=== PATIENT | female | born 1980 | race Caucasian/White ===

== ENCOUNTER → 2017-02-01 | Outpatient (CLI) | payer OTHER ==
[~2017-02-01] MED LIST: /AUGM875TA OR; CALC500T21 PO; DIPH50CA PO; DULO20CA OR; IBUP600T26 PO; IBUP800T OR; LISI5TAB PO; MILKSUS OR; NATU400T PO; OMEP20CA3 PO; OMEP20TA7 PO; ROZE8TAB PO; SING10TA31 OR; VENTAER INH; VITA400C29 PO; VITA500C OR; ZINC220T2 OR; ZITH500T PO; garlic PO; melatonin; probiotic PO
--- NOTE | 2017-02-01 09:50 | REP ---
MAXILLOFACIAL CT WITHOUT CONTRAST: HISTORY: Chronic maxillary sinusitis. The sinuses are clear. The osteomeatal units are patent. The middle and inferior nasal turbinates are partially paradoxical. There is mild deviation of the nasal septum to the right. A spur is present arising from the right side of the nasal septum. The cribriform plate, medial johnson of the orbits and optic canals are intact. The carotid canals form a segment of the posterolateral johnson of the sphenoid sinus. The sphenoid sinus septum inserts into the right internal carotid canal wall. IMPRESSION: There is no acute or chronic sinusitis. Signed by Lauro Warren MD 02/01/2017 10:12 A
== END ==
LOC: M RAD 09:07
PROVIDERS: ATTEND Specialist
DX: J32.0 Chronic maxillary sinusitis (principal); J32.2 Chronic ethmoidal sinusitis

== ENCOUNTER → 2017-02-21 | Outpatient (CLI) | payer OTHER ==
[~2017-02-21] MED LIST changes: +E-Z-GAS II EFFERVESCENT PACKET (SODIUM BICARB./CITRIC ACID/SIMETHICONE) As Ordered ONE; +E-Z-HD 98% w/w 340GM SUSP BTL As Ordered ONE; +E-Z-PAQUE 96% w/w SUSP 176GM BTL As Ordered ONE
--- NOTE | 2017-02-22 05:52 | REP ---
ESOPHAGRAM: The procedure was performed under the direct supervision of Dr. Abreu. The images were reviewed with Dr. Abreu. A single view PA chest x-ray is submitted as a shaper set up operator film. The superior mediastinal structures are midline. The heart size is within normal limits. The lungs are clear. Liquid barium and gas producing granules were given in the erect position as well as liquid barium in the prone oblique positions in order to perform a double contrast esophagram examination. The oral and pharyngeal stages of deglutition are unremarkable. During esophageal transport, there are mild tertiary waves demonstrated. There is gastroesophageal reflux demonstrated to above the level of the peter. IMPRESSION: 1. Mild esophageal dysmotility. 2. There is gastroesophageal reflux demonstrated to above the level of the peter. 54 seconds of fluoroscopy time was utilized for this procedure. Reviewed by DAVID Mckeon 02/22/2017 05:31 PEdited and Signed by Angelo Abreu MD 02/25/2017 05:33 P
== END ==
LOC: M RAD 08:40
PROVIDERS: ATTEND Specialist
DX: R13.13 Dysphagia, pharyngeal phase (principal)

== ENCOUNTER 2017-03-05 02:14 | Inpatient (IN) | payer OTHER ==
[~2017-03-05] VITALS: Ht 167.6 cm; Wt 115.9 kg
[~2017-03-05 02:14] MED LIST changes: -E-Z-GAS II EFFERVESCENT PACKET (SODIUM BICARB./CITRIC ACID/SIMETHICONE) As Ordered ONE; -E-Z-HD 98% w/w 340GM SUSP BTL As Ordered ONE; -E-Z-PAQUE 96% w/w SUSP 176GM BTL As Ordered ONE
[2017-03-05] MEDS ORDERED: ONDANSETRON 4MG/2ML VIAL (J2405) IV PRN (02:30)
[2017-03-05 05:30] VITALS: BP 169/81
[2017-03-05] MEDS ORDERED: CLINDAMYCIN 300 MG in APPROPRIATE DILUENT 1 EA IV SCH (06:00)
[2017-03-05] MEDS ORDERED: HYDR12CA PO (06:06)
[2017-03-05] MEDS ORDERED: PANT40TA2 PO (06:06)
[2017-03-05] MEDS ORDERED: LORA10TA2 PO (06:06)
[2017-03-05] MEDS ORDERED: HUMI40KI SC (06:06)
[2017-03-05] MEDS ORDERED: TOPR25TA PO (06:06)
[2017-03-05] MEDS ORDERED: BACITAB3 PO (06:06)
[2017-03-05] MEDS ORDERED: DIPH50CA PO (06:06)
[2017-03-05] MEDS ORDERED: DOCU100C PO (06:06)
[2017-03-05] MEDS ORDERED: ZANA4TAB PO (06:06)
[2017-03-05] MEDS ORDERED: VITA10002 PO (06:06)
[2017-03-05] MEDS ORDERED: FLAG500T PO (06:06)
[2017-03-05] MEDS ORDERED: VITA50003 PO (06:06)
[2017-03-05] MEDS ORDERED: FENO145T PO (06:06)
[2017-03-05] MEDS ORDERED: CIPR500T3 PO (06:06)
[2017-03-05] MEDS ORDERED: CLIN1GEL22 EXT (06:06)
[2017-03-05] MEDS ORDERED: OMEG100011 PO (06:06)
[2017-03-05] MEDS ORDERED: CITR1SOL PO (06:06)
[2017-03-05] MEDS ORDERED: TRIA1CR TOP (06:06)
[2017-03-05] MEDS ORDERED: ACETAMINOPHEN TAB 650MG DOSE (2X325MG) PO PRN (07:00)
[2017-03-05 07:30] LABS: BASO % 0.4 % (0.0-1.0); EOS # 0.2 K/mm3 (0.0-0.50); EOS % 3.4 % (0.0-3.0); LARGE UNSTAINED CELL # 0.1 K/mm3 (0.0-0.4); LARGE UNSTAINED CELL % 2.4 % (0.0-4.0); LYMPH # 1.6 K/mm3 (1.5-4.5); LYMPH % 35.2 % (24.0-44.0); MEAN CORPUSCULAR HEMOGLOBIN 31.3 pg (27.0-33.0); MEAN CORPUSCULAR HGB CONC 34.2 g/dl (32.0-36.5); MEAN CORPUSCULAR VOLUME 91.5 fl (80.0-96.0); MONO # 0.3 K/mm3 (0.0-0.8); MONO % 6.2 % (0.0-5.0); NEUTROPHILS # 2.4 K/mm3 (1.8-7.7); NEUTROPHILS % 52.4 % (36.0-66.0); PLATELET COUNT, AUTOMATED 184 k/mm3 (150-450); RED CELL DISTRIBUTION WIDTH 13.1 % (11.5-14.5); WHITE BLOOD COUNT 4.6 K/mm3 (4.0-10.0)
[2017-03-05 07:45] LABS: ALBUMIN 3.4 GM/DL (3.2-5.2); ALKALINE PHOSPHATASE 37 U/L (45-117); ALT/SGPT 58 U/L (12-78); ANION GAP 8 MEQ/L (8-16); AST/SGOT 33 U/L (15-37); BILIRUBIN,TOTAL 0.6 MG/DL (0.2-1.0); BLOOD UREA NITROGEN 8 MG/DL (7-18); CALCIUM LEVEL 8.5 MG/DL (8.5-10.1); CARBON DIOXIDE LEVEL 27 MEQ/L (21-32); CHLORIDE LEVEL 109 MEQ/L (98-107); CREATININE FOR GFR 0.84 MG/DL (0.55-1.02); GLOMERULAR FILTRATION RATE > 60.0 (>60); GLUCOSE, FASTING 109 MG/DL (70-105); POTASSIUM SERUM 3.5 MEQ/L (3.5-5.1); SODIUM LEVEL 144 MEQ/L (136-145); TOTAL PROTEIN 6.8 GM/DL (6.4-8.2)
--- NOTE | 2017-03-05 07:49 | HPE ---
DATE OF ADMISSION: 03/05/2017 PRIMARY CARE PHYSICIAN: Sabra Calderon CHIEF COMPLAINT: Erythema and pain on the left lower abdomen. HISTORY OF PRESENT ILLNESS: Ms. Medina is a 36-year-old female with multiple past medical history who was transferred from [facility] for further evaluation and treatment. The patient expressed that on Saturday she started noticing pain in her right lower quadrant abdomen and a small erythema area, 7/10, stationary and sharp pain that increases with palpitation. On , the patient was seen by her primary care physician who prescribed her clindamycin due to the possibility of a flare-up of hidradenitis suppurativa and prevention of cellulitis. The patient expressed that the pain increased and on Saturday night she went to [facility] where they performed a CT and they diagnosed the patient with diverticulitis and started the patient on Flagyl and Cipro and make patient nothing by mouth. However, she expressed that they stopped the clindamycin. The patient expressed that she never had a history of Methicillin-resistant Staphylococcus aureus (MRSA). She did not have diarrhea or hematochezia. The patient also denies fevers, chills or night sweats. The patient also denies changes in her bowel habits. She also denies nausea or vomiting. She expressed that she has been having episodes of hidradenitis suppurativa flareup since she was very young. Patient reported tolerating oral liquids since yesterday. ALLERGIES: 1. KETOROLAC. 2. SUMATRIPTAN. 3. Tape. HOME MEDICATIONS: Ciprofloxacin 550 mg by mouth twice a day Clindamycin phosphate one dose extended twice a day when necessary Vitamin B12 1000mcg by mouth daily at bedtime Docusate sodium 100 mg by mouth twice a day Vitamin D 50,000 units by mouth only on Fenofibrate 145 mg by mouth daily at bedtime Hydrochlorothiazide 12.5 mg by mouth daily bacid 3 tablets by mouth daily at bedtime Loratadine 10 mg by mouth daily at bedtime Citrate of magnesia 300 mL by mouth daily when necessary constipation Toprol-XL 25 mg by mouth daily at bedtime Flagyl 500 mg by mouth for 10 days Medical 3 1000 mg 1 By mouth daily at bedtime Pantoprazole sodium 40 mg by mouth daily at bedtime Zanaflex 2 tab by mouth daily at bedtime Triamcinolone Acet one dose topical twice a day when necessary sores PAST MEDICAL HISTORY: 1. Hidradenitis suppurativa. 2. Diverticulitis. 3. Cellulitis. SOCIAL HISTORY: The patient has three children who are healthy and the patient lives with her stepfather and mother. The patient expressed that she drinks alcohol occasionally. The patient denies illicit drug use. The patient denies tobacco use. The patient has not traveled outside of the [place]. The patient has one cat. FAMILY HISTORY: The patient has one half brother and two half sisters who are healthy. The patient's mother has hyperglycemia. The patient's father has many different diseases except cancer. REVIEW OF SYSTEMS: GENERAL: Patient denies fever, chills, night sweats, weight loss, weight gain. HEENT: Patient denies acute vision or hearing changes. Patient denies headache , lightheadedness or dizziness, problems with chewing foods or sinusitis. NECK: Patient denies lumps, bumps or decreased range of motion of her neck. HEART: Patient denies palpitation, racing or skipping heartbeat, or chest pain. LUNGS: Patient denies shortness of breath. ABDOMEN: Patient denies nausea, vomiting diarrhea; however, patient has history of chronic constipation. Patient also has pain, erythema area which she expressed that pain increases with palpation. The patient expressed the pain is about 5/10, sharp pain. NEUROLOGIC: Patient denies history of transient ischemic attack (TIA), CVA, or seizure-type activities. PHYSICAL EXAMINATION: VITAL SIGNS: Temperature 100.5, pulse 76, respiratory rate 20, pulse oximetry 97% on room air. GENERAL APPEARANCE: Patient was lying in bed, acute distress due to pain. Patient was awake, alert and oriented to time, place and person. HEENT: Normocephalic, atraumatic. Pupils are equal, reactive to light. Oral mucosa is moist. NECK: Soft, supple. No lymphadenopathy. No thyromegaly. HEART: Regular rate and rhythm. Normal S1, S2. LUNGS: Clear breath bilaterally, good air movement. ABDOMEN: Soft. There is erythema area, worm with two small lesions however, no bleeding, discharge or pus was noticed in that area. Pain increased with palpation of the area however no guarding. The patient also has a small lesion in the left mid axillary area, swelling and erythema and tenderness to palpation. The patient has positive bowel sounds in all quadrants. EXTREMITIES: Patient has mild pitting edema in both lower extremities. +2 pulses in both lower extremities. The patient has normal range of motion and strength (5/5) in both upper and lower extremities. NEUROLOGICAL: Cranial nerves II through XII intact. No focal deficiencies. LABORATORY DATA: Laboratory data is from [facility] which was collected on 03/04/2017, which indicated sodium 143, BUN 8, potassium 3.3, chloride 109, CO2 30, anion gap 7, glucose 95, creatinine 0.8, glomerular filtration rate (GFR) more than 60, ALT 52, AST 28, ALP 42, calcium 9.8, total bilirubin 0.8, albumin 4.7, total protein 7.7. Lactic acid 0.9. White blood cells 6.3, red blood cells 3.73, hemoglobin 11.4, hematocrit 33.2, MCV 89, MCH 30.6, MCHC 34.3, RDW 12, platelets 218, MCV 10.7, neutrophil percentage 51.0. Urinalysis - urine color and urine appearance clear, urine pH 7, urine specific gravity 1.016, leukocytosis negative, nitrite negative, protein negative, glucose negative, ketones negative, urobilinogen 0.2, bilirubin negative, blood negative. IMAGING TECHNIQUES: CT of the abdomen and pelvis without contrast, which was done at [facility] on 03/02/2017, which indicated wall thickening and inflammatory changes involving the sigmoid colon consistent with acute diverticulitis. No abscess or perforation. Chest x-ray two-view, which was done at [facility] on 03/02/2017, which did not indicate any acute pathology. ASSESSMENT/PLAN: 1. Cellulitis. this is secondary to Hidradenitis suppurativa possibly stage 2. At this time, we will start the patient on Ceftaroline. Patient has fever of 100.5, however no leukocytosis. I will continue patient on triamcinolone acet 0.1% cr. For pain management we'll continue patient on Percocet 1 tablet by mouth every 6 hours when necessary pain. 2. Normocytic anemia. This could be possibly secondary to GI bleed secondary to diverticulitis vs IV fluid. I have ordered occult blood tests and iron studies. The results are pending at this time. The patient did not have any history of colonoscopy or EGD. Patient is not on IV fluid since she can tolerate PO intake. We'll continue monitoring H&H. 3. Hypertension. Patient's blood pressure is a stable at this time. I will continue patient on home medications hydrochlorothiazide and Toprol. 4. Gastroesophageal reflux disease (GERD). We'll continue patient on pantoprazole. 5. Insomnia. Patient was on Benadryl 50 mg by mouth daily at bedtime when necessary however at this time patient is a stable. 6. Seasonal allergies. We'll continue patient on loratadine 10 mg daily at bedtime. 7. Deep vein thrombosis (DVT) prophylaxis. We will continue the patient on thromboembolic deterrent stockings (TEDS) and sequentials. 8. Hypercholesterolemia: Patient is on fenofibrate 145 mg by mouth daily at bedtime. 9. Chronic constipation: Patient is on magnesium citrate 300 mL by mouth daily when necessary for constipation. My preceptor for this patient encounter was Dr. Nohemy Valles. The preceptor was physically present in the building during the encounter and was fully available. As needed, all aspects of the patient interview, examination, medical decision making process, and medical care plan development were reviewed and approved by the preceptor. The preceptor is aware and concurs with the plan as stated in the body of this note and will attest to such by his/her cosignature. ADELINE
[2017-03-05 08:00] VITALS: BP 161/85
[2017-03-05] MEDS ORDERED: CEFTAROLINE FOSAMIL 400 MG in D5W 50 ML IV SCH (08:00)
[2017-03-05] MEDS ORDERED: diphenhydrAMINE 50 MG CAP PO PRN (08:15)
[2017-03-05] MEDS ORDERED: TRIAMCINOLONE ACET 0.1% CREAM 15 GM TOP PRN (08:15)
[2017-03-05] MEDS ORDERED: MAGNESIUM CITRATE 300 ML BTL PO PRN (08:15)
[2017-03-05] MEDS: CEFTAROLINE FOSAMIL 400 MG in D5W MINI-BAG PLUS 50 ML IV SCH ×2 (08:36→21:59)
[2017-03-05] MEDS ORDERED: ENOXAPARIN 40 MG/0.4 ML SYRINGE (J1650) SC SCH (09:00)
[2017-03-05] MEDS ORDERED: LISINOPRIL 5 MG TAB PO SCH (09:00)
[2017-03-05] MEDS ORDERED: PERCOCET 5MG/325MG TAB PO PRN (09:45)
[2017-03-05] MEDS: hydroCHLOROthiazide 12.5 MG CAPSULE PO SCH (10:05)
[2017-03-05] MEDS: DOCUSATE SODIUM 100 MG CAP PO SCH ×2 (10:05→22:14)
[2017-03-05] MEDS: PERCOCET 5MG/325MG TAB PO PRN ×3 (10:06→22:18)
[2017-03-05 10:13] LABS: FOLATE 13.8 NG/ML (>5.4)
[2017-03-05] MEDS ORDERED: MORPHINE 2 MG/ML 1ML SYRINGE IV ONE (13:00)
[2017-03-05] MEDS: ONDANSETRON 4MG/2ML VIAL (J2405) IV PRN ×2 (13:09→18:33)
--- NOTE | 2017-03-05 14:08 | IPNPDOC ---
Date Seen The patient was seen on 03/05/17. Progress Note SUBJECTIVE: Ms. Medina is a 36-year-old female evaluated bedside this morning. She states that she still in a moderate amount of pain on her lower right abdomen as well as experiencing some pain in her left axilla. She reports that she has recurrent cellulitic infections and has a history of hidradenitis suppurativa. She was a direct admission from [facility]. She follows with a plater production in [place]. OBJECTIVE PHYSICAL EXAMINATION: VITAL SIGNS: Please see below. GENERAL: Obese female dilated bedside this morning, well-nourished, well-developed, no apparent distress HEENT: Atraumatic, normocephalic, PERRL, EOMI, oral mucosa appears pink and moist, nasal septum appears midline CARDIOVASCULAR: Regular rate and rhythm, normal S1 and S2, no murmur, rub, click appreciated RESPIRATORY: Clear to auscultation bilaterally, adequate inspiratory and expiratory airway excursion, no wheeze, rhonchi, crackles ABDOMINAL: Obese with diffuse stretch ansari noted; erythematous, raised, non- weeping circular, moderately sized lesions some with a more clear center noted along the lower left abdominal fold EXTREMITIES: Mild, trace peripheral edema noted in the lower extremities bilaterally; peripheral pulses noted in the upper and lower extremities bilaterally, equal, symmetrical, +2/4; very mildly erythematous and somewhat raised ill-defined lesion proximal to the left axilla that is exquisitely tender to light palpation NEUROLOGICAL: Cranial nerves II through XII are grossly intact PSYCHOLOGICAL: Uncomfortable LABORATORY DATA: Please see below. MICROBIOLOGY: Please see below. DVT prophylaxis ordered?: TEDs and sequentials with knee-high compression stockings ASSESSMENT AND PLAN: Ms. Medina is a 36-year-old female with a history of hydradenitis suppurativa, cellulitis, and diverticulitis who presents with recurrent cutaneous lesions was consistent with hidradenitis suppurativa. PROBLEMS: 1. Hidradenitis suppurativa: Appears to be Corona stage II. Currently being treated with by mouth ceftaroline, Percocet, and topical triamcinolone. Could also consider adding topical clindamycin as well as a short course of prednisone by mouth. Obtaining MRSA screen. 2. Hypertension: Continue with metoprolol and hydrochlorothiazide. 3. Anemia, mild: Stool for occult blood being obtained. Iron studies within optimal range. 4. Chronic constipation. Continue patient on bowel regimen of acid, Colace, magnesium citrate. 5. Dyslipidemia: Continue fenofibrate. 6. Allergies: Continue with Claritin. 7. Insomnia: Continue with Benadryl. 8. Gastric esophageal reflux disease: Continue with Protonix. Continue with Zofran for nausea. DISPOSITION: Remains admitted to the pediatrics unit. Continue current management for hydradenitis suppuravita. Control pain. Clinical evaluation at this time appears stable. Anticipated discharge in the next 2448 hrs. VS, I&O, 24H, Fishbone Vital Signs/I&O Vital Signs Date Time Temp Pulse Resp B/P (MAP) Pulse Ox O2 Delivery O2 Flow Rate FiO2 03/05/17 13:00 18 03/05/17 08:00 98.1 75 161/85 (110) 97 Room Air I&O- Last 24 Hours up to 6 AM 03/05/17 06:00 Intake Total 240 ml Output Total 0 ml Balance 240 ml Laboratory Data 24H LABS Laboratory Tests 2 03/05/17 07:04: White Blood Count 4.6, Red Blood Count 3.46L, Hemoglobin 10.8L, Hematocrit 31.6L , Mean Corpuscular Volume 91.5, Mean Corpuscular Hemoglobin 31.3, Mean Corpuscular Hemoglobin Concent 34.2, Red Cell Distribution Width 13.1, Platelet Count 184, Neutrophils (%) (Auto) 52.4, Lymphocytes (%) (Auto) 35.2, Monocytes ( %) (Auto) 6.2H, Eosinophils (%) (Auto) 3.4H, Basophils (%) (Auto) 0.4, Neutrophils # (Auto) 2.4, Lymphocytes # (Auto) 1.6, Monocytes # (Auto) 0.3, Eosinophils # (Auto) 0.2, Basophils # (Auto) 0.0, Large Unclassified Cells % 2.4 , Large Unclassified Cells # 0.1, Anion Gap 8, Glomerular Filtration Rate > 60.0 , Blood Urea Nitrogen 8, Creatinine 0.84, Sodium Level 144, Potassium Level 3.5 , Chloride Level 109H, Carbon Dioxide Level 27, Calcium Level 8.5, Aspartate Amino Transf (AST/SGOT) 33, Alanine Aminotransferase (ALT/SGPT) 58, Alkaline Phosphatase 37L, Total Bilirubin 0.6, Total Protein 6.8, Albumin 3.4, Albumin/ Globulin Ratio 1.00 03/05/17 08:18: Lactic Acid Level 1.2 03/05/17 09:10: Iron Level 66, Total Iron Binding Capacity 275, Transferrin % Saturation 24.0, Ferritin 460H, Vitamin B12 Level 888, Folate 13.8 CBC/BMP Laboratory Tests 03/05/17 07:04 Red Blood Count 3.46 L, Mean Corpuscular Volume 91.5, Mean Corpuscular Hemoglobin 31.3, Mean Corpuscular Hemoglobin Concent 34.2, Red Cell Distribution Width 13.1, Neutrophils (%) (Auto) 52.4, Lymphocytes (%) (Auto) 35.2, Monocytes (%) (Auto) 6.2 H, Eosinophils (%) (Auto) 3.4 H, Basophils (%) ( Auto) 0.4, Neutrophils # (Auto) 2.4, Lymphocytes # (Auto) 1.6, Monocytes # (Auto ) 0.3, Eosinophils # (Auto) 0.2, Basophils # (Auto) 0.0, Calcium Level 8.5, Aspartate Amino Transf (AST/SGOT) 33, Alanine Aminotransferase (ALT/SGPT) 58, Alkaline Phosphatase 37 L, Total Bilirubin 0.6, Total Protein 6.8, Albumin 3.4 DANIEL KNAPP March 05, 2017 14:08
[2017-03-05 16:00] VITALS: BP 140/83
[2017-03-05 20:00] VITALS: BP 164/75
[2017-03-05] MEDS: MORPHINE 2 MG/ML 1ML SYRINGE IV PRN (20:00)
[2017-03-05] MEDS ORDERED: DULoxetine 20 MG CAP (CYMBALTA) PO SCH (21:00)
[2017-03-05] MEDS ORDERED: RAMELTEON 8 MG TAB (ROZEREM) PO SCH (21:00)
[2017-03-05] MEDS ORDERED: OMEPRAZOLE 20 MG CAP PO SCH (21:00)
[2017-03-05] MEDS: LACTOBACILLUS ACIDOPHILUS CAP (BACID) PO SCH ×2 (22:13→22:22)
[2017-03-05] MEDS: diphenhydrAMINE 50 MG CAP PO SCH ×2 (22:13→22:22)
[2017-03-05] MEDS: LORATADINE 10 MG TAB PO SCH (22:14)
[2017-03-05] MEDS: PANTOPRAZOLE 40MG TAB (PROTONIX) PO SCH (22:14)
[2017-03-05] MEDS: OMEGA-3 1050MG CAPSULE PO SCH (22:14)
[2017-03-05] MEDS: METOPROLOL SUCC *XL* 25MG TAB (TopROL *XL*) PO SCH (22:15)
[2017-03-05] MEDS: tiZANidine 4 MG TAB PO SCH (22:16)
[2017-03-05] MEDS: FENOFIBRATE 145 MG TAB (TRICOR) PO SCH (22:17)
[2017-03-05] MEDS: CYANOCOBALAMIN 500 MCG TAB PO SCH (22:17)
[2017-03-06] VITALS: BP 130/75
[2017-03-06] MEDS: ONDANSETRON 4MG/2ML VIAL (J2405) IV PRN ×3 (00:13→20:38)
[2017-03-06] MEDS: MORPHINE 2 MG/ML 1ML SYRINGE IV PRN ×5 (00:13→22:18)
[2017-03-06] MEDS ORDERED: ONDANSETRON 4MG/2ML VIAL (J2405) IV PRN (02:30)
[2017-03-06 07:02] LABS: BASO % 0.6 % (0.0-1.0); EOS # 0.2 K/mm3 (0.0-0.50); EOS % 3.1 % (0.0-3.0); LARGE UNSTAINED CELL # 0.1 K/mm3 (0.0-0.4); LARGE UNSTAINED CELL % 1.5 % (0.0-4.0); LYMPH # 1.6 K/mm3 (1.5-4.5); LYMPH % 31.9 % (24.0-44.0); MEAN CORPUSCULAR HEMOGLOBIN 31.6 pg (27.0-33.0); MEAN CORPUSCULAR HGB CONC 35.4 g/dl (32.0-36.5); MEAN CORPUSCULAR VOLUME 89.4 fl (80.0-96.0); MONO # 0.3 K/mm3 (0.0-0.8); MONO % 5.7 % (0.0-5.0); NEUTROPHILS # 2.8 K/mm3 (1.8-7.7); NEUTROPHILS % 57.2 % (36.0-66.0); PLATELET COUNT, AUTOMATED 193 k/mm3 (150-450); RED CELL DISTRIBUTION WIDTH 13.3 % (11.5-14.5); WHITE BLOOD COUNT 4.9 K/mm3 (4.0-10.0)
[2017-03-06 07:21] LABS: ANION GAP 7 MEQ/L (8-16); BLOOD UREA NITROGEN 7 MG/DL (7-18); CARBON DIOXIDE LEVEL 28 MEQ/L (21-32); CHLORIDE LEVEL 107 MEQ/L (98-107); CREATININE FOR GFR 0.93 MG/DL (0.55-1.02); GLOMERULAR FILTRATION RATE > 60.0 (>60); GLUCOSE, FASTING 122 MG/DL (70-105); POTASSIUM SERUM 3.6 MEQ/L (3.5-5.1); SODIUM LEVEL 142 MEQ/L (136-145)
[2017-03-06] MEDS ORDERED: ACETAMINOPHEN 325 MG TAB PO PRN (07:45)
[2017-03-06 08:00] VITALS: BP 129/69
[2017-03-06] MEDS ORDERED: PERCOCET 5MG/325MG TAB PO PRN (08:00)
[2017-03-06] MEDS: hydroCHLOROthiazide 12.5 MG CAPSULE PO SCH (09:53)
[2017-03-06] MEDS: DOCUSATE SODIUM 100 MG CAP PO SCH ×2 (09:53→20:39)
[2017-03-06] MEDS: CEFTAROLINE FOSAMIL 400 MG in D5W MINI-BAG PLUS 50 ML IV SCH ×2 (09:53→20:40)
[2017-03-06] MEDS: PERCOCET 5MG/325MG TAB PO PRN ×3 (09:54→20:37)
--- NOTE | 2017-03-06 10:26 | IPNPDOC ---
Date Seen The patient was seen on 03/06/17. Progress Note SUBJECTIVE: Ms. Medina is a 36-year-old female evaluated bedside this morning. Had long discussion with patient about the different options for pain control. Patient reports that the interval of morphine with Percocet was working well. Have reinstituted at protocol of morphine every 4 hours and Percocet every 4 hours. Patient did have a fever overnight. No intervention required. Patient sees Rhiannon Abbott in [place] for her hidradenitis suppuravita . Patient reports that she is still in pain. Patient reports that one of the abscesses is draining and then she will get in the shower which will help express abscess. Also reports that she would like to have something to eat now that her nausea has been controlled. OBJECTIVE PHYSICAL EXAMINATION: VITAL SIGNS: Please see below. GENERAL: Obese female resting comfortably upon evaluation this morning , well-nourished, well-developed, no apparent distress HEENT: Atraumatic, normocephalic, PERRL, EOMI, oral mucosa appears pink and moist, nasal septum appears midline, nares are patent CARDIOVASCULAR: Regular rate and rhythm, normal S1 and S2, no murmur, rub, click appreciated RESPIRATORY: Clear to auscultation bilaterally, adequate inspiratory and expiratory airway excursion, no wheeze, rhonchi, crackles appreciated ABDOMINAL: Multiple erythematous, raised lesions noted along the right lower abdominal fold with one expressing purulent discharge, exquisitely tender to mild palpation, bowel sounds appreciated, abdomen is otherwise round, soft, nontender, nondistended EXTREMITIES: Mildly erythematous and raised lesion noted proximal to the left axilla, not well demarcated NEUROLOGICAL: Cranial nerves II through XII appear grossly intact PSYCHOLOGICAL: Mood and affect appear appropriate LABORATORY DATA: Please see below. MICROBIOLOGY: Please see below. DVT prophylaxis ordered?: TEDs and sequentials with knee-high compression stockings ASSESSMENT AND PLAN: Ms. Medina is a 36-year-old female with a history of hydradenitis suppurativa, cellulitis, and diverticulitis who presents with recurrent cutaneous lesions consistent with hidradenitis suppurativa. PROBLEMS: 1. Hidradenitis suppurativa: Appears to be Corona stage II-III. Abscess in the right lower abdominal fold is beginning to drain. Currently being treated with by mouth ceftaroline, Percocet, morphine, and topical triamcinolone. MRSA screen is pending. CRP and ESR pending. 2. Fever: Patient on Percocet and at maximum dose of Tylenol per 24 hours. Continue to monitor. Could consider packing with ice if fever returns or persists. Patient allergic to NSAIDs some management with aspirin his discouraged 3. Hypertension: Continue with metoprolol and hydrochlorothiazide. 4. Anemia, mild: Patient reports history of anemia. Stool for occult blood being obtained. Iron studies within optimal range. 5. Chronic constipation. Continue patient on bowel regimen of acid, Colace, magnesium citrate. 6. Dyslipidemia: Continue fenofibrate. 7. Allergies: Continue with Claritin. 8. Insomnia: Continue with Benadryl. 9. Gastric esophageal reflux disease: Continue with Protonix. Continue with Zofran for nausea. DISPOSITION: Remains admitted to the pediatrics unit. Continue current management for hydradenitis suppuravita. Control pain. Clinical evaluation at this time appears stable. Anticipated discharge in the next 48-72 hrs. VS, I&O, 24H, [facility] Vital Signs/I&O Vital Signs Date Time Temp Pulse Resp B/P (MAP) Pulse Ox O2 Delivery O2 Flow Rate FiO2 03/06/17 09:54 18 03/06/17 08:00 97.2 68 129/69 (89) 98 Room Air I&O- Last 24 Hours up to 6 AM 03/06/17 06:00 Intake Total 890 ml Balance 890 ml Laboratory Data 24H LABS Laboratory Tests 2 03/06/17 06:32: White Blood Count 4.9, Red Blood Count 3.53L, Hemoglobin 11.2L, Hematocrit 31.6L , Mean Corpuscular Volume 89.4, Mean Corpuscular Hemoglobin 31.6, Mean Corpuscular Hemoglobin Concent 35.4, Red Cell Distribution Width 13.3, Platelet Count 193, Neutrophils (%) (Auto) 57.2, Lymphocytes (%) (Auto) 31.9, Monocytes ( %) (Auto) 5.7H, Eosinophils (%) (Auto) 3.1H, Basophils (%) (Auto) 0.6, Neutrophils # (Auto) 2.8, Lymphocytes # (Auto) 1.6, Monocytes # (Auto) 0.3, Eosinophils # (Auto) 0.2, Basophils # (Auto) 0.0, Large Unclassified Cells % 1.5 , Large Unclassified Cells # 0.1, Anion Gap 7L, Glomerular Filtration Rate > 60.0, Blood Urea Nitrogen 7, Creatinine 0.93, Sodium Level 142, Potassium Level 3.6, Chloride Level 107, Carbon Dioxide Level 28, Calcium Level 9.0 CBC/BMP Laboratory Tests 03/06/17 06:32 Red Blood Count 3.53 L, Mean Corpuscular Volume 89.4, Mean Corpuscular Hemoglobin 31.6, Mean Corpuscular Hemoglobin Concent 35.4, Red Cell Distribution Width 13.3, Neutrophils (%) (Auto) 57.2, Lymphocytes (%) (Auto) 31.9, Monocytes (%) (Auto) 5.7 H, Eosinophils (%) (Auto) 3.1 H, Basophils (%) ( Auto) 0.6, Neutrophils # (Auto) 2.8, Lymphocytes # (Auto) 1.6, Monocytes # (Auto ) 0.3, Eosinophils # (Auto) 0.2, Basophils # (Auto) 0.0, Calcium Level 9.0 Microbiology Microbiology 03/05/17 MRSA Screen, Received Pending DANIEL KNAPP March 06, 2017 10:26
[2017-03-06 16:00] VITALS: BP 92/45
[2017-03-06 17:00] VITALS: BP 131/60
[2017-03-06 17:45] LABS: ERYTHROCYTE SEDIMENTATION RATE 19 mm/hr (0-20)
[2017-03-06 20:00] VITALS: BP 141/77
[2017-03-06] MEDS: OMEGA-3 1050MG CAPSULE PO SCH (20:38)
[2017-03-06] MEDS: LACTOBACILLUS ACIDOPHILUS CAP (BACID) PO SCH (20:38)
[2017-03-06] MEDS: METOPROLOL SUCC *XL* 25MG TAB (TopROL *XL*) PO SCH (20:38)
[2017-03-06] MEDS: FENOFIBRATE 145 MG TAB (TRICOR) PO SCH (20:39)
[2017-03-06] MEDS: PANTOPRAZOLE 40MG TAB (PROTONIX) PO SCH (20:39)
[2017-03-06] MEDS: CYANOCOBALAMIN 500 MCG TAB PO SCH (20:39)
[2017-03-06] MEDS: tiZANidine 4 MG TAB PO SCH (20:39)
[2017-03-06] MEDS: LORATADINE 10 MG TAB PO SCH (20:39)
[2017-03-06] MEDS: diphenhydrAMINE 50 MG CAP PO SCH (20:58)
[2017-03-07] VITALS: BP 116/67
[2017-03-07] MEDS: PERCOCET 5MG/325MG TAB PO PRN ×6 (00:31→23:36)
[2017-03-07] MEDS: MORPHINE 2 MG/ML 1ML SYRINGE IV PRN ×5 (02:53→21:48)
[2017-03-07] MEDS: ONDANSETRON 4MG/2ML VIAL (J2405) IV PRN ×3 (05:28→21:47)
[2017-03-07 07:21] LABS: BASO % 0.7 % (0.0-1.0); EOS # 0.2 K/mm3 (0.0-0.50); EOS % 2.9 % (0.0-3.0); LARGE UNSTAINED CELL # 0.1 K/mm3 (0.0-0.4); LARGE UNSTAINED CELL % 1.9 % (0.0-4.0); LYMPH # 2.3 K/mm3 (1.5-4.5); LYMPH % 40.9 % (24.0-44.0); MEAN CORPUSCULAR HEMOGLOBIN 31.1 pg (27.0-33.0); MEAN CORPUSCULAR HGB CONC 34.5 g/dl (32.0-36.5); MEAN CORPUSCULAR VOLUME 90.1 fl (80.0-96.0); MONO # 0.3 K/mm3 (0.0-0.8); MONO % 5.7 % (0.0-5.0); NEUTROPHILS # 2.6 K/mm3 (1.8-7.7); NEUTROPHILS % 47.9 % (36.0-66.0); PLATELET COUNT, AUTOMATED 210 k/mm3 (150-450); RED CELL DISTRIBUTION WIDTH 13.3 % (11.5-14.5); WHITE BLOOD COUNT 5.4 K/mm3 (4.0-10.0)
[2017-03-07 08:00] VITALS: BP 115/78
[2017-03-07 08:01] LABS: ANION GAP 6 MEQ/L (8-16); BLOOD UREA NITROGEN 9 MG/DL (7-18); CALCIUM LEVEL 8.9 MG/DL (8.5-10.1); CARBON DIOXIDE LEVEL 29 MEQ/L (21-32); CHLORIDE LEVEL 105 MEQ/L (98-107); CREATININE FOR GFR 0.91 MG/DL (0.55-1.02); GLOMERULAR FILTRATION RATE > 60.0 (>60); GLUCOSE, FASTING 100 MG/DL (70-105); POTASSIUM SERUM 3.4 MEQ/L (3.5-5.1); SODIUM LEVEL 140 MEQ/L (136-145)
[2017-03-07] MEDS: DOCUSATE SODIUM 100 MG CAP PO SCH ×2 (08:51→21:48)
[2017-03-07] MEDS: hydroCHLOROthiazide 12.5 MG CAPSULE PO SCH (08:51)
[2017-03-07] MEDS: CEFTAROLINE FOSAMIL 400 MG in D5W MINI-BAG PLUS 50 ML IV SCH ×2 (08:51→21:47)
[2017-03-07] MEDS ORDERED: VITAMIN D 50,000 UNITS CAPSULE (ERGOCALCIFEROL 1.25MG) PO SCH (09:00)
[2017-03-07] MEDS: POTASSIUM CHLORIDE 10 MEQ SR TABLET PO SCH ×2 (10:06→12:57)
--- NOTE | 2017-03-07 11:20 | IPNPDOC ---
Date Seen The patient was seen on 03/07/17. Progress Note SUBJECTIVE: Ms. Medina is a 36-year-old female who is examined at bedside this morning. She states that her abdominal abscess is starting to drain more. The pain control regimen that we have her on is working sufficiently. She reports that she still has not had a bowel movement since being here. Have ordered magnesium citrate. Patient reports that she has hemorrhoids after taking magnesium citrate so Anusol 25 mg twice a day has been added. Have discussed adverse effects of Anusol with patient. She is aware and understands. Patient's potassium was mildly decreased at 3.4. Have provided supplementation. And waiting a call from patient's metal patternmaker in [place]. Patient also reports calor and rubor along the lower portion of her abdomen extending out from the abscess on her right lower quadrant abdominal wall. Also reports a new lesion in her left axilla. States that she had no concerns with her diet. OBJECTIVE PHYSICAL EXAMINATION: VITAL SIGNS: Please see below. GENERAL: Obese female resting comfortably in hospital bed upon evaluation this morning, well-nourished, well-developed, in no apparent distress HEENT: Atraumatic, normocephalic, PERRL, EOMI, oral mucosa appears pink and moist, nasal septum appears midline, nares are patent CARDIOVASCULAR: Regular rate and rhythm, normal S1 and S2, no murmur, rub, click appreciated RESPIRATORY: Clear to auscultation bilaterally, adequate inspiratory and extremity airway excursion, no wheeze, rhonchi, crackles appreciated ABDOMINAL: Draining abscess with surrounding erythema noted on the right lower quadrant abdominal fold associated pain on palpation, drainage is serosanguineous, associated mild rubor and calor extending across the abdomen with no associated pain EXTREMITIES: Peripheral pulses in the upper and lower extremities appreciated bilaterally, equal, symmetrical, +2/4, trace edema noted in the bilateral lower extremities, two somewhat circular mildly erythematous lesions noted in the proximal left axilla without drainage NEUROLOGICAL: Cranial nerves II through XII grossly intact PSYCHOLOGICAL: Mood and affect appear appropriate LABORATORY DATA: Please see below. MICROBIOLOGY: Please see below. DVT prophylaxis ordered?: TEDs and sequentials with knee-high compression stockings ASSESSMENT AND PLAN: Ms. Medina is a 36-year-old female with a history of hydradenitis suppurativa, cellulitis, and diverticulitis who presents with recurrent cutaneous lesions consistent with hidradenitis suppurativa. PROBLEMS: 1. Hidradenitis suppurativa with associated cellulitis: Appears to be Corona stage II-III in the right lower quadrant abdominal fold. Abscess is draining serosanguineous fluid. Continue with Ceftaroline and topical triamcinolone. Continue with Percocet and morphine for pain. MRSA screen is pending. CRP was 0.87. Continue to monitor. 2. Hypokalemia: Supplemented with 2 doses of 40 mEq potassium chloride. We'll continue to monitor. 3. Hypertension: Continue with metoprolol and hydrochlorothiazide. 4. Anemia, mild: Patient reports history of anemia. Stool for occult blood being obtained. Iron studies within optimal range. 5. Chronic constipation. Continue patient on bowel regimen of acid, Colace, magnesium citrate. 6. Dyslipidemia: Continue fenofibrate. 7. Allergies: Continue with Claritin. 8. Insomnia: Continue with Benadryl. 9. Gastric esophageal reflux disease: Continue with Protonix. Continue with Zofran for nausea. DISPOSITION: Remains admitted to the pediatrics unit. Continue current management for hydradenitis suppuravita with associated cellulitis. Pain controlled. Clinical evaluation at this time appears stable. Awaiting call from patient's metal patternmaker in [place]. Anticipated discharge in the next 48-72 hrs. VS, I&O, 24H, Pending Sale To [facility] Vital Signs/I&O Vital Signs Date Time Temp Pulse Resp B/P (MAP) Pulse Ox O2 Delivery O2 Flow Rate FiO2 03/07/17 10:45 16 03/07/17 08:00 98.3 68 115/78 (90) 96 Room Air 03/07/17 07:53 18.0 I&O- Last 24 Hours up to 6 AM 03/07/17 06:00 Intake Total 1380 ml Output Total 0 ml Balance 1380 ml Laboratory Data 24H LABS Laboratory Tests 2 03/07/17 06:50: White Blood Count 5.4, Red Blood Count 3.81L, Hemoglobin 11.8L, Hematocrit 34.3L , Mean Corpuscular Volume 90.1, Mean Corpuscular Hemoglobin 31.1, Mean Corpuscular Hemoglobin Concent 34.5, Red Cell Distribution Width 13.3, Platelet Count 210, Neutrophils (%) (Auto) 47.9, Lymphocytes (%) (Auto) 40.9, Monocytes ( %) (Auto) 5.7H, Eosinophils (%) (Auto) 2.9, Basophils (%) (Auto) 0.7, Neutrophils # (Auto) 2.6, Lymphocytes # (Auto) 2.3, Monocytes # (Auto) 0.3, Eosinophils # (Auto) 0.2, Basophils # (Auto) 0.0, Large Unclassified Cells % 1.9 , Large Unclassified Cells # 0.1, Anion Gap 6L, Glomerular Filtration Rate > 60.0, Blood Urea Nitrogen 9, Creatinine 0.91, Sodium Level 140, Potassium Level 3.4L, Chloride Level 105, Carbon Dioxide Level 29, Calcium Level 8.9, C- Reactive Protein, Quantitative 0.87H CBC/BMP Laboratory Tests 03/07/17 06:50 Red Blood Count 3.81 L, Mean Corpuscular Volume 90.1, Mean Corpuscular Hemoglobin 31.1, Mean Corpuscular Hemoglobin Concent 34.5, Red Cell Distribution Width 13.3, Neutrophils (%) (Auto) 47.9, Lymphocytes (%) (Auto) 40.9, Monocytes (%) (Auto) 5.7 H, Eosinophils (%) (Auto) 2.9, Basophils (%) ( Auto) 0.7, Neutrophils # (Auto) 2.6, Lymphocytes # (Auto) 2.3, Monocytes # (Auto ) 0.3, Eosinophils # (Auto) 0.2, Basophils # (Auto) 0.0, Calcium Level 8.9 DANIEL KNAPP-Luke March 07, 2017 11:20
[2017-03-07] MEDS: ANUSOL HC 25MG SUPP PR SCH ×2 (11:45→18:49)
[2017-03-07] MEDS ORDERED: GASTROGRAFIN SOLUTION 30ML (Q9963) PO ONE (15:45)
[2017-03-07 16:00] VITALS: BP 102/53
[2017-03-07] MEDS ORDERED: GASTROGRAFIN SOLUTION 30ML PO ONE (16:15)
[2017-03-07 20:00] VITALS: BP 137/74
[2017-03-07] MEDS: diphenhydrAMINE 50 MG CAP PO SCH (21:00)
[2017-03-07] MEDS: LORATADINE 10 MG TAB PO SCH (21:48)
[2017-03-07] MEDS: PANTOPRAZOLE 40MG TAB (PROTONIX) PO SCH (21:48)
[2017-03-07] MEDS: FENOFIBRATE 145 MG TAB (TRICOR) PO SCH (21:48)
[2017-03-07] MEDS: OMEGA-3 1050MG CAPSULE PO SCH (21:48)
[2017-03-07] MEDS: LACTOBACILLUS ACIDOPHILUS CAP (BACID) PO SCH (21:48)
[2017-03-07] MEDS: tiZANidine 4 MG TAB PO SCH (21:48)
[2017-03-07 21:49] VITALS: BP 137/74
[2017-03-07] MEDS: METOPROLOL SUCC *XL* 25MG TAB (TopROL *XL*) PO SCH (21:49)
[2017-03-07] MEDS: CYANOCOBALAMIN 500 MCG TAB PO SCH (21:49)
[2017-03-08] VITALS: BP 120/73
[2017-03-08] MEDS: MORPHINE 2 MG/ML 1ML SYRINGE IV PRN ×2 (03:40→07:59)
[2017-03-08] MEDS: ONDANSETRON 4MG/2ML VIAL (J2405) IV PRN (05:38)
[2017-03-08] MEDS: PERCOCET 5MG/325MG TAB PO PRN ×2 (05:38→10:18)
[2017-03-08 07:18] LABS: BASO % 0.6 % (0.0-1.0); EOS # 0.2 K/mm3 (0.0-0.50); LARGE UNSTAINED CELL # 0.1 K/mm3 (0.0-0.4); LARGE UNSTAINED CELL % 2.1 % (0.0-4.0); LYMPH # 2.2 K/mm3 (1.5-4.5); LYMPH % 41.5 % (24.0-44.0); MEAN CORPUSCULAR HEMOGLOBIN 31.4 pg (27.0-33.0); MEAN CORPUSCULAR HGB CONC 35.1 g/dl (32.0-36.5); MEAN CORPUSCULAR VOLUME 89.6 fl (80.0-96.0); MONO # 0.4 K/mm3 (0.0-0.8); NEUTROPHILS # 2.4 K/mm3 (1.8-7.7); NEUTROPHILS % 45.9 % (36.0-66.0); PLATELET COUNT, AUTOMATED 201 k/mm3 (150-450); RED CELL DISTRIBUTION WIDTH 13.3 % (11.5-14.5); WHITE BLOOD COUNT 5.2 K/mm3 (4.0-10.0)
[2017-03-08 07:49] LABS: ANION GAP 5 MEQ/L (8-16); BLOOD UREA NITROGEN 11 MG/DL (7-18); CALCIUM LEVEL 8.6 MG/DL (8.5-10.1); CARBON DIOXIDE LEVEL 30 MEQ/L (21-32); CHLORIDE LEVEL 104 MEQ/L (98-107); CREATININE FOR GFR 0.81 MG/DL (0.55-1.02); GLOMERULAR FILTRATION RATE > 60.0 (>60); GLUCOSE, FASTING 94 MG/DL (70-105); POTASSIUM SERUM 4.1 MEQ/L (3.5-5.1); SODIUM LEVEL 139 MEQ/L (136-145)
[2017-03-08 08:00] VITALS: BP 123/71
[2017-03-08] MEDS: DOCUSATE SODIUM 100 MG CAP PO SCH (08:36)
[2017-03-08] MEDS: ANUSOL HC 25MG SUPP PR SCH (08:36)
[2017-03-08] MEDS: CEFTAROLINE FOSAMIL 400 MG in D5W MINI-BAG PLUS 50 ML IV SCH (08:36)
[2017-03-08] MEDS: hydroCHLOROthiazide 12.5 MG CAPSULE PO SCH (08:36)
[2017-03-08] MEDS ORDERED: MIRALAX *UNIT DOSE* 17GM PACKET PO PRN (10:30)
[2017-03-08] MEDS ORDERED: LEVA750T PO (15:36)
--- NOTE | 2017-03-08 19:17 | DS.PDOC ---
Discharge Summary General Date of Admission March 05, 2017 at 04:38 Date of Discharge 03/08/2017 Primary Care Physician: Maribel Blas NP [facility] Attending Physician: AMNA BLANDON MD Discharge Summary PROCEDURES PERFORMED DURING STAY: None. ADMITTING DIAGNOSES: 1. Cellulitis. 2. Normocytic anemia. 3. Hypertension. 4. Gastroesophageal reflux disease 5. Insomnia. 6. Seasonal allergies. 7. Hypercholesterolemia. 8. Chronic constipation. DISCHARGE DIAGNOSES: 1. Cellulitis versus hidradenitis suppurative flare-up versus abscess. 2. Normocytic anemia. 3. Hypertension. 4. Gastroesophageal reflux disease. 5. Insomnia. 6. Seasonal allergies. 7. Hypercholesterolemia. 8. Chronic constipation. 9. Hypokalemia. COMPLICATIONS/CHIEF COMPLAINT: Cellulitis. HISTORY OF PRESENT ILLNESS: Ms. Medina is a 36-year-old female with multiple past medical history who was transferred from [facility] for further evaluation and treatment. The patient expressed that on Saturday she started noticing pain in her right lower quadrant abdomen and a small erythema area, 7/10, stationary and sharp pain that increases with palpitation. On , the patient was seen by her primary care physician who prescribed her clindamycin due to the possibility of a flare-up of hidradenitis suppurativa and prevention of cellulitis. The patient expressed that the pain increased and on Saturday night she went to [facility] where they performed a CT and they diagnosed the patient with diverticulitis and started the patient on Flagyl and Cipro and make patient nothing by mouth. However, she expressed that they stopped the clindamycin. The patient expressed that she never had a history of Methicillin-resistant Staphylococcus aureus (MRSA). She did not have diarrhea or hematochezia. The patient also denies fevers, chills or night sweats. The patient also denies changes in her bowel habits. She also denies nausea or vomiting. She expressed that she has been having episodes of hidradenitis suppurativa flareup since she was very young. Patient reported tolerating oral liquids since yesterday. HOSPITAL COURSE: Patient was admitted and followed by hospitalist service. Hospitalized for cellulitis versus hidradenitis suppurativa flareup versus abscess. She was started on ceftaroline. Abdominal fold lesions eventually unroofed and drained serosanguineous fluid, but improved throughout admission and hospitalization. Discharged on Levaquin 750 mg for 3 remaining days. Had two isolated febrile episodes that did not require any acute intervention as they resolved spontaneously. Topical triamcinolone was continued. Patient's pain was initially difficult to manage, but it appears that an appropriate regimen was established with morphine and Percocet. Patient was not discharged on any pain medication. Laboratory studies indicated normocytic anemia, however iron studies were normal. CRP improved. MRSA screen pending at time of discharge. Patient developed mild hypokalemia fortunately supplementation was provided. Patient's blood pressure, gastroesophageal reflux disease, insomnia, seasonal allergies, hypercholesterolemia, and chronic constipation were appropriately managed. Patient improved throughout hospitalization and was stable for discharge. DISCHARGE MEDICATIONS: Please see below. ALLERGIES: Please see below. PHYSICAL EXAMINATION ON DISCHARGE: VITAL SIGNS: Please see below. GENERAL: Obese female sitting in chair side upon evaluation this morning, well-nourished and well-developed, in no apparent distress HEENT: Atraumatic, normocephalic, PERRL, EOMI, oral mucosa appears pink and moist, nasal septum appears midline, nares appear patent NECK: Soft, supple, trachea midline, no lymphadenopathy appreciated CARDIOVASCULAR EXAMINATION: Regular rate and rhythm, normal S1 and S2, no murmur , rub, click appreciated RESPIRATORY EXAMINATION: Clear to auscultation bilaterally, adequate inspiratory and extremely weak excursion, no wheeze, rhonchi, crackles appreciated ABDOMINAL EXAMINATION: Improving erythematous lesion on right-sided abdominal fold draining very minimal serosanguineous fluid, dual-colored subepidermal lesion proximal to the left axilla EXTREMITIES: Moving all 4 extremities appropriately, peripheral pulses appreciated in the bilateral upper and lower extremities, equal, symmetrical, +2 /4, no appreciable edema SKIN: Warm, dry, intact NEUROLOGICAL EXAMINATION: Cranial nerves II through XII appear grossly intact PSYCHIATRIC EXAMINATION: Mood and affect appear appropriate LABORATORY DATA: Please see below. PROGNOSIS: Stable. ACTIVITY: As tolerated. DIET: 2 g sodium. DISCHARGE PLAN: See discharge instructions DISPOSITION: 01 Home, Self-Care. DISCHARGE INSTRUCTIONS: 1. Continue Levaquin 750 mg daily for the next 3 days. ITEMS TO FOLLOWUP ON ON OUTPATIENT: 1. Appointment with Maribel Blas 2016 at 1:30 PM. 2. Make appointment with Rhiannon Abbott. DISCHARGE CONDITION: Stable. TIME SPENT ON DISCHARGE: Greater than 30 minutes. Vital Signs/I&Os Vital Signs Date Time Temp Pulse Resp B/P (MAP) Pulse Ox O2 Delivery O2 Flow Rate FiO2 03/08/17 11:10 18 03/08/17 08:00 98.1 63 123/71 (88) 99 Room Air 03/07/17 07:53 18.0 I&O- Last 24 Hours up to 6 AM 03/08/17 06:00 Intake Total 2760 ml Balance 2760 ml Laboratory Data Labs 24H Laboratory Tests 2 03/08/17 06:49: White Blood Count 5.2, Red Blood Count 3.68L, Hemoglobin 11.6L, Hematocrit 33.0L , Mean Corpuscular Volume 89.6, Mean Corpuscular Hemoglobin 31.4, Mean Corpuscular Hemoglobin Concent 35.1, Red Cell Distribution Width 13.3, Platelet Count 201, Neutrophils (%) (Auto) 45.9, Lymphocytes (%) (Auto) 41.5, Monocytes ( %) (Auto) 7.0H, Eosinophils (%) (Auto) 3.0, Basophils (%) (Auto) 0.6, Neutrophils # (Auto) 2.4, Lymphocytes # (Auto) 2.2, Monocytes # (Auto) 0.4, Eosinophils # (Auto) 0.2, Basophils # (Auto) 0.0, Large Unclassified Cells % 2.1 , Large Unclassified Cells # 0.1, Anion Gap 5L, Glomerular Filtration Rate > 60.0, Blood Urea Nitrogen 11, Creatinine 0.81, Sodium Level 139, Potassium Level 4.1#, Chloride Level 104, Carbon Dioxide Level 30, Calcium Level 8.6, C- Reactive Protein, Quantitative 0.59H CBC/BMP Laboratory Tests 03/08/17 06:49 Red Blood Count 3.68 L, Mean Corpuscular Volume 89.6, Mean Corpuscular Hemoglobin 31.4, Mean Corpuscular Hemoglobin Concent 35.1, Red Cell Distribution Width 13.3, Neutrophils (%) (Auto) 45.9, Lymphocytes (%) (Auto) 41.5, Monocytes (%) (Auto) 7.0 H, Eosinophils (%) (Auto) 3.0, Basophils (%) ( Auto) 0.6, Neutrophils # (Auto) 2.4, Lymphocytes # (Auto) 2.2, Monocytes # (Auto ) 0.4, Eosinophils # (Auto) 0.2, Basophils # (Auto) 0.0, Calcium Level 8.6 Microbiology Microbiology 03/07/17 MRSA Screen, Received Pending Discharge Medications Scheduled (Humira) 40 Mg/0.8 Ml Kit, 40 MG SC 1XWK, (Reported) BEEN SEVERAL MONTHS CAUSE OF INFECTION Cyanocobalamin (Vitamin B-12) 1,000 Mcg Tab, 1,000 MCG PO QHS, (Reported) Docusate Sodium (Docusate Sodium) 100 Mg Cap, 100 MG PO BID, (Reported) Ergocalciferol (Vitamin D) 50,000 Unit Cap, 50,000 UNIT PO 1XWK, (Reported) SATURDAY MIGHT Fenofibrate (Fenofibrate) 145 Mg Tab, 145 MG PO QHS, (Reported) Hydrochlorothiazide (Hydrochlorothiazide) 12.5 Mg Cap, 12.5 MG PO DAILY, ( Reported) Lactobacillus Acidophilus (Bacid) 1 Tab Tab, 3 TAB PO QHS, (Reported) Levofloxacin Hemihydrate (Levaquin) 750 Mg Tab, 750 MG PO DAILY Loratadine (Loratadine) 10 Mg Tab, 10 MG PO QHS, (Reported) Metoprolol Succinate (Toprol Xl) 25 Mg Tab, 25 MG PO QHS, (Reported) Erin 3 Polyunsat Fatty Acids (Erin 3 1000 mg) 1 Cap Cap, 1 CAP PO QHS, ( Reported) Pantoprazole Sodium (Pantoprazole Sodium) 40 Mg Tab, 40 MG PO QHS, (Reported) Tizanidine Hydrochloride (Zanaflex) 4 Mg Tab, 2 TAB PO QHS, (Reported) Scheduled PRN Clindamycin Phosphate (Clindamycin Phosphate) 30 Gm Gel, 1 DOSE EXT BID PRN for SORES, (Reported) Diphenhydramine HCl (Diphenhydramine HCl) 50 Mg Cap, 50 MG PO QHS PRN for SLEEP, (Reported) Magnesium Citrate (Citrate of Magnesia) 300 Ml Soln, 300 ML PO DAILY PRN for CONSTIPATION, (Reported) Triamcinolone Acet (Triamcinolone Acetonide 0.1% Crm) 1 Dose/15 Gm Cr, 1 DOSE TOP BID PRN for SORES, (Reported) Allergies Coded Allergies: Ketorolac (Verified Allergy, Severe, BREATHING PROBLEM, 02/02/13) NSAIDs (Unverified Allergy, Severe, ANAPHYLAXIS, 03/05/17) Sumatriptan (Verified Allergy, Mild, SWELLING, 02/02/13) TAPE (Verified Allergy, Mild, ADHESIVES- REDNESS, RASH, 11/02/13) DANIEL KNAPP-I March 08, 2017 17:44
== END 2017-03-08 16:05 | disposition home or self-care (01) | DRG 383 ==
LOC: M PED 04:38
PROVIDERS: ADMIT Internal Medicine Nephrology; ATTEND Internal Medicine
DX: L03.311 Cellulitis of abdominal wall (principal); I10 Essential (primary) hypertension; L73.2 Hidradenitis suppurativa; E87.6 Hypokalemia; K59.00 Constipation, unspecified; G47.00 Insomnia, unspecified; D50.9 Iron deficiency anemia, unspecified; K21.9 Gastro-esophageal reflux disease without esophagitis; E78.00 Pure hypercholesterolemia, unspecified; Z79.899 Other long term (current) drug therapy; Z88.8 Allergy status to other drugs, medicaments and biological substances; E78.5 Hyperlipidemia, unspecified

== ENCOUNTER → 2017-04-10 | Outpatient (REF) | payer OTHER ==
[~2017-04-10] MED LIST changes: +BACITAB3 PO; +CIPR500T3 PO; +CITR1SOL PO; +CLIN1GEL22 EXT; +DOCU100C PO; +FENO145T PO; +FLAG500T PO; +HUMI40KI SC; +HYDR12CA PO; +LEVA750T PO; +LORA10TA2 PO; +OMEG100011 PO; +PANT40TA2 PO; +TOPR25TA PO; +TRIA1CR TOP; +VITA10002 PO; +VITA50003 PO; +ZANA4TAB PO
[2017-04-10 14:04] LABS: BASO % 0.7 % (0.0-1.0); EOS # 0.2 K/mm3 (0.0-0.50); EOS % 3.9 % (0.0-3.0); LARGE UNSTAINED CELL # 0.1 K/mm3 (0.0-0.4); LARGE UNSTAINED CELL % 1.1 % (0.0-4.0); LYMPH % 32.9 % (24.0-44.0); MEAN CORPUSCULAR HEMOGLOBIN 30.9 pg (27.0-33.0); MEAN CORPUSCULAR VOLUME 88.2 fl (80.0-96.0); MONO # 0.3 K/mm3 (0.0-0.8); MONO % 5.7 % (0.0-5.0); NEUTROPHILS # 3.3 K/mm3 (1.8-7.7); NEUTROPHILS % 55.7 % (36.0-66.0); PLATELET COUNT, AUTOMATED 200 k/mm3 (150-450); RED CELL DISTRIBUTION WIDTH 13.8 % (11.5-14.5); WHITE BLOOD COUNT 5.8 K/mm3 (4.0-10.0)
[2017-04-10 14:22] LABS: VITAMIN B12 LEVEL 1036 PG/ML
[2017-04-10 14:23] LABS: FOLATE 12.8 NG/ML
[2017-04-10 14:27] LABS: ALBUMIN/GLOBULIN RATIO 1.11 (1.00-1.93); ALKALINE PHOSPHATASE 48 U/L (45-117); ALT/SGPT 54 U/L (12-78); ANION GAP 7 MEQ/L (8-16); AST/SGOT 30 U/L (15-37); BILIRUBIN,TOTAL 0.8 MG/DL (0.2-1.0); BLOOD UREA NITROGEN 8 MG/DL (7-18); CALCIUM LEVEL 9.3 MG/DL (8.5-10.1); CARBON DIOXIDE LEVEL 25 MEQ/L (21-32); CHLORIDE LEVEL 109 MEQ/L (98-107); GLOMERULAR FILTRATION RATE > 60.0 (>60); GLUCOSE, FASTING 96 MG/DL (70-105); POTASSIUM SERUM 4.1 MEQ/L (3.5-5.1); SODIUM LEVEL 141 MEQ/L (136-145); TOTAL PROTEIN 7.6 GM/DL (6.4-8.2)
[2017-04-10 14:37] LABS: ERYTHROCYTE SEDIMENTATION RATE 14 mm/hr (0-20)
[2017-04-11 13:55] LABS: ALBUMIN % 58.3 % (55.8-66.1)
[2017-04-11 13:56] LABS: ALBUMIN 4.43 GM/DL (3.29-5.55); GAMMA GLOBULIN % 16.4 % (11.1-18.8)
[2017-04-13 08:07] LABS: VITAMIN E LEVEL 8.3 mg/L (5.3-16.8)
== END ==
LOC: M LABNEURO 13:39
PROVIDERS: ATTEND Psychiatry & Neurology Neurology
DX: F09 Unspecified mental disorder due to known physiological condition (principal)

== ENCOUNTER → 2017-10-30 | Outpatient (CLI) | payer OTHER | LOC: M RAD 09:41 | DX: K21.9 Gastro-esophageal reflux disease without esophagitis (principal); R16.1 Splenomegaly, not elsewhere classified | CPT/HCPCS: 76700 ==

== ENCOUNTER → 2017-11-29 | Outpatient (CLI) | payer OTHER ==
[2017-11-29 18:47] LABS: IRON (FE) 65 UG/DL (50-170); PERCENT SATURATION 19.6 % (13.2-45.0); TOTAL IRON BINDING CAPACITY 331 UG/DL (250-450)
[2017-12-02 10:46] LABS: HEPATITIS B SURFACE ANTIBODY POSITIVE (POSITIVE)
[2017-12-02 10:55] LABS: HEPATITIS B SURFACE ANTIGEN NEGATIVE (NEGATIVE)
[2017-12-02 11:21] LABS: HEPATITIS A ANTIBODY IGM NEGATIVE (NEGATIVE)
[2017-12-03 08:06] LABS: ALPHA 1 ANTITRYPSIN 126 mg/dL (90-200); ANGIOTENSIN 1 CONVERTING ENZYM 64 U/L (14-82); ANTI-MITOCHONDRIAL ANTIBODY 6.5 Units (0.0-20.0); CERULOPLASMIN 30.2 mg/dL (19.0-39.0); IGASUB3 31.1 mg/dL (13.4-97.9); IgA SERUM (part of Subclasses) 193 mg/dL (87-352); LIVER-KIDNEY MICROSOMAL ABY 0.7 Units (0.0-20.0); TISSUE TRANSGLUTAMINASE IgA <2 U/mL (0-3)
[2017-12-03 08:06] LABS: ANTI-SMOOTH MUSCLE ANTIBODY 5 Units (0-19)
== END ==
LOC: M LAB 16:00
DX: K21.9 Gastro-esophageal reflux disease without esophagitis (principal)
CPT/HCPCS: 83550

== ENCOUNTER 2017-12-03 11:02 | Day surgery (SDC) | payer OTHER ==
[2017-12-03] MEDS: NS 1,000 ML IV (11:33)
[2017-12-03] MEDS ORDERED: PROPOFOL 200 MG/20 ML VIAL As Ordered ×2 (12:30)
[2017-12-03] MEDS ORDERED: LIDOCAINE 2% INJ 100 MG/5 ML SDV (FOR ANES.) As Ordered (12:30)
== END 2017-12-03 14:13 | disposition home or self-care (01) ==
LOC: M OPP 11:02
DX: R10.32 Left lower quadrant pain (principal); R10.31 Right lower quadrant pain; K59.00 Constipation, unspecified; D12.7 Benign neoplasm of rectosigmoid junction; K57.30 Diverticulosis of large intestine without perforation or abscess without bleeding; K64.8 Other hemorrhoids; R10.13 Epigastric pain; Z98.84 Bariatric surgery status; Z98.0 Intestinal bypass and anastomosis status; K31.89 Other diseases of stomach and duodenum; I10 Essential (primary) hypertension; E78.5 Hyperlipidemia, unspecified; K76.9 Liver disease, unspecified; E16.2 Hypoglycemia, unspecified; R12 Heartburn; K21.9 Gastro-esophageal reflux disease without esophagitis; M19.90 Unspecified osteoarthritis, unspecified site; F41.9 Anxiety disorder, unspecified; G43.909 Migraine, unspecified, not intractable, without status migrainosus; Z88.8 Allergy status to other drugs, medicaments and biological substances; Z91.048 Other nonmedicinal substance allergy status; Z79.899 Other long term (current) drug therapy; Z80.9 Family history of malignant neoplasm, unspecified
CPT/HCPCS: 45380

== ENCOUNTER → 2017-12-26 | Outpatient (CLI) | payer OTHER ==
[2017-12-26 13:51] LABS: BASO % 0.5 % (0.0-1.0); EOS % 0.7 % (0.0-3.0); HEMATOCRIT 37.4 % (36.0-47.0); HEMOGLOBIN 12.9 g/dl (12.0-16.0); IMMATURE GRANULOCYTE % 0.3 % (0-3.0); LYMPH # 1.7 10^3/uL (1.5-4.5); MEAN CORPUSCULAR HEMOGLOBIN 29.9 pg (27.0-33.0); MEAN CORPUSCULAR HGB CONC 34.5 g/dl (32.0-36.5); MEAN CORPUSCULAR VOLUME 86.6 fl (80.0-96.0); MONO # 0.4 10^3/uL (0.0-0.8); MONO % 6.3 % (0.0-5.0); NEUTROPHILS # 3.7 10^3/uL (1.8-7.7); NEUTROPHILS % 63.2 % (36.0-66.0); PLATELET COUNT, AUTOMATED 155 10^3/uL (150-450); RED BLOOD COUNT 4.32 10^6/uL (4.00-5.40); RED CELL DISTRIBUTION WIDTH 11.9 % (11.5-14.5); WHITE BLOOD COUNT 5.8 10^3/uL (4.0-10.0)
[2017-12-26 14:06] LABS: ALBUMIN 4.1 GM/DL (3.2-5.2); ALBUMIN/GLOBULIN RATIO 1.21 (1.00-1.93); ALKALINE PHOSPHATASE 57 U/L (45-117); ALT/SGPT 32 U/L (12-78); ANION GAP 5 MEQ/L (8-16); AST/SGOT 18 U/L (7-37); BLOOD UREA NITROGEN 12 MG/DL (7-18); CALCIUM LEVEL 9.6 MG/DL (8.5-10.1); CARBON DIOXIDE LEVEL 33 MEQ/L (21-32); CHLORIDE LEVEL 104 MEQ/L (98-107); CREATININE FOR GFR 0.69 MG/DL (0.55-1.30); GLOMERULAR FILTRATION RATE > 60.0 (>60); GLUCOSE, FASTING 76 MG/DL (70-100); POTASSIUM SERUM 4.4 MEQ/L (3.5-5.1); SODIUM LEVEL 142 MEQ/L (136-145); TOTAL PROTEIN 7.5 GM/DL (6.4-8.2)
== END ==
LOC: M WUC 09:56
DX: M79.1 Myalgia (principal)
CPT/HCPCS: 80053

== ENCOUNTER 2018-02-15 19:45 | Emergency (ER) | payer OTHER ==
[2018-02-15] MEDS: NS 1,000 ML IV (22:19)
[2018-02-15] MEDS: diphenhydrAMINE INJ 50MG/ML VIAL (J1200) IV (22:19)
[2018-02-15] MEDS: methylPREDNISolone INJ 125 MG/2 ML VIAL (J2930) IV (22:19)
[2018-02-15 22:28] LABS: BASO % 0.5 % (0.0-1.0); EOS % 0.3 % (0.0-3.0); HEMATOCRIT 36.9 % (36.0-47.0); IMMATURE GRANULOCYTE % 0.3 % (0-3.0); LYMPH # 2.8 10^3/uL (1.5-4.5); LYMPH % 43.3 % (24.0-44.0); MEAN CORPUSCULAR HEMOGLOBIN 30.6 pg (27.0-33.0); MEAN CORPUSCULAR HGB CONC 35.2 g/dl (32.0-36.5); MEAN CORPUSCULAR VOLUME 86.8 fl (80.0-96.0); MONO # 0.3 10^3/uL (0.0-0.8); MONO % 4.9 % (0.0-5.0); NEUTROPHILS # 3.3 10^3/uL (1.8-7.7); NEUTROPHILS % 50.7 % (36.0-66.0); PLATELET COUNT, AUTOMATED 174 10^3/uL (150-450); RED BLOOD COUNT 4.25 10^6/uL (4.00-5.40); RED CELL DISTRIBUTION WIDTH 12.7 % (11.5-14.5); WHITE BLOOD COUNT 6.5 10^3/uL (4.0-10.0)
[2018-02-15 22:51] LABS: ANION GAP 8 MEQ/L (8-16); BLOOD UREA NITROGEN 15 MG/DL (7-18); C REACTIVE PROTEIN QUANTITATIV < 0.30 MG/DL (0.00-0.30); CALCIUM LEVEL 8.4 MG/DL (8.5-10.1); CARBON DIOXIDE LEVEL 25 MEQ/L (21-32); CHLORIDE LEVEL 107 MEQ/L (98-107); CREATININE FOR GFR 0.62 MG/DL (0.55-1.30); GLOMERULAR FILTRATION RATE > 60.0 (>60); GLUCOSE, FASTING 91 MG/DL (70-100); SODIUM LEVEL 140 MEQ/L (136-145)
[2018-02-15] MEDS: METOCLOPRAMIDE INJ 10MG/2ML VIAL (J2765) IV (22:52)
[2018-02-15 23:06] LABS: ERYTHROCYTE SEDIMENTATION RATE 8 mm/hr (0-20)
[2018-02-15] MEDS: MORPHINE 4 MG/ML 1ML VIAL/SYRINGE (J2270) IV (23:08)
[2018-02-15] MEDS: ONDANSETRON 4MG/2ML VIAL (J2405) IV (23:51)
== END 2018-02-16 00:06 | disposition home or self-care (01) ==
LOC: M ED 02-16 00:06
DX: G43.909 Migraine, unspecified, not intractable, without status migrainosus (principal); R11.0 Nausea; I10 Essential (primary) hypertension; K21.9 Gastro-esophageal reflux disease without esophagitis; M54.9 Dorsalgia, unspecified; Z98.84 Bariatric surgery status; Z79.899 Other long term (current) drug therapy; Z88.6 Allergy status to analgesic agent; Z88.8 Allergy status to other drugs, medicaments and biological substances; Z91.89 Other specified personal risk factors, not elsewhere classified
CPT/HCPCS: J2270

== ENCOUNTER 2018-07-09 20:36 | Emergency (ER) | payer OTHER ==
[2018-07-10] MEDS: PERCOCET 5MG/325MG TAB PO (00:07)
[2018-07-10] MEDS: PENICILLIN V POTASSIUM 500 MG TAB PO (00:07)
[2018-07-10] MEDS: ONDANSETRON 4 MG ORAL DISINTEGRATING TAB (Q0162 PER 1MG) PO (00:08)
== END 2018-07-10 00:09 | disposition home or self-care (01) ==
LOC: M ED 07-10 00:09
DX: S02.5XXA Fracture of tooth (traumatic), initial encounter for closed fracture (principal); X58.XXXA Exposure to other specified factors, initial encounter; Y92.9 Unspecified place or not applicable; Y93.89 Activity, other specified; Y99.9 Unspecified external cause status; I10 Essential (primary) hypertension; G89.29 Other chronic pain; M54.9 Dorsalgia, unspecified; J45.909 Unspecified asthma, uncomplicated; G43.909 Migraine, unspecified, not intractable, without status migrainosus; K21.9 Gastro-esophageal reflux disease without esophagitis; Z79.899 Other long term (current) drug therapy; Z88.6 Allergy status to analgesic agent; Z88.8 Allergy status to other drugs, medicaments and biological substances; Z91.89 Other specified personal risk factors, not elsewhere classified
CPT/HCPCS: Q0162

== ENCOUNTER 2019-04-02 20:49 | Emergency (ER) | payer OTHER ==
[~2019-04-02] VITALS: Ht 167.6 cm; Wt 76.4 kg
[~2019-04-02 20:49] MED LIST changes: +BACITAB PO; -BACITAB3 PO; +BIOT10008 PO; +BUT/APAP/CAF; +CYMB1CAP4 OR; -DOCU100C PO; +DOCU100C16 PO; -DULO20CA OR; +FAMO20TA PO; -FENO145T PO; +FENO145T13 PO; +LABE20TAB PO; -LEVA750T PO; +LEVA750T7 PO; +LINZ145C; +LORA-243 PO; -LORA10TA2 PO; +METO5TAB2; +MIRA3350 PO; +MULT1TAB10 PO; -PANT40TA2 PO; +PANT40TA3 PO; +PENI500T PO; +PERC5TAB12 PO; +SENN8.6C PO; +TRIA0.1C60 TOP; -TRIA1CR TOP; -VITA50003 PO; +VITA50005 PO; +VITA500T3 PO; +ZOFR4TAB14 PO
[2019-04-02] MEDS ORDERED: ZYRTTAB8 PO (21:11)
[2019-04-02] MEDS ORDERED: CLIN300C5 (21:11)
[2019-04-02 21:58] LABS: BASO % 0.4 % (0.0-1.0); HEMATOCRIT 40.5 % (36.0-47.0); HEMOGLOBIN 14.6 g/dl (12.0-15.5); LYMPH # 2.5 10^3/uL (1.5-4.5); LYMPH % 37.1 % (24.0-44.0); MEAN CORPUSCULAR HEMOGLOBIN 31.8 pg (27.0-33.0); MEAN CORPUSCULAR VOLUME 88.2 fl (80.0-96.0); MONO # 0.4 10^3/uL (0.0-0.8); MONO % 5.5 % (0.0-5.0); NEUTROPHILS # 3.8 10^3/uL (1.8-7.7); NEUTROPHILS % 56.6 % (36.0-66.0); PLATELET COUNT, AUTOMATED 171 10^3/uL (150-450); RED BLOOD COUNT 4.59 10^6/uL (4.00-5.40); WHITE BLOOD COUNT 6.7 10^3/uL (4.0-10.0)
[2019-04-02 22:26] LABS: ALBUMIN 4.1 GM/DL (3.2-5.2); ALT/SGPT 40 U/L (12-78); BILIRUBIN,TOTAL 0.8 MG/DL (0.2-1.0); BLOOD UREA NITROGEN 18 MG/DL (7-18); CALCIUM LEVEL 8.7 MG/DL (8.5-10.1); CARBON DIOXIDE LEVEL 22 MEQ/L (21-32); CHLORIDE LEVEL 110 MEQ/L (98-107); CPK CREATINE PHOSPHOKINASE 107 U/L (26-192); CREATININE FOR GFR 0.59 MG/DL (0.55-1.30); GLOMERULAR FILTRATION RATE > 60.0 (>60); GLUCOSE, FASTING 96 MG/DL (70-100); MB/CK RELATIVE INDEX 1.12 (< OR =4); POTASSIUM SERUM 4.1 MEQ/L (3.5-5.1); SODIUM LEVEL 142 MEQ/L (136-145); TOTAL PROTEIN 7.5 GM/DL (6.4-8.2); TROPONIN I < 0.02 NG/ML (< 0.10)
[2019-04-02 22:41] LABS: URINE PREG TEST NEGATIVE (NEGATIVE)
[2019-04-02] MEDS ORDERED: GI COCKTAIL 50ML BTL(HYOSCYAMINE/MAALOX/LIDOCAINE VISCOUS)(1:3:1) PO ONE (22:45)
[2019-04-02] MEDS ORDERED: ONDANSETRON 4MG/2ML VIAL (J2405) IV ONE (22:45)
[2019-04-02] MEDS ORDERED: PANTOPRAZOLE 40MG INJ (PROTONIX) (C9113) IV ONE (22:45)
[2019-04-02] MEDS: NS 1,000 ML IV SCH (23:17)
[2019-04-03] MEDS ORDERED: ISOVUE-370 76% 100ML VIAL (Q9967) As Ordered ONE (00:16)
[2019-04-03] MEDS: GASTROGRAFIN SOLUTION 30ML PO SCH ×2 (00:44→01:03)
[2019-04-03] MEDS: NS 1,000 ML IV SCH (00:46)
[2019-04-03] MEDS ORDERED: ONDANSETRON 4MG/2ML VIAL (J2405) IV ONE (01:45)
--- NOTE | 2019-04-03 04:23 | REPVR ---
EXAM: CT Abdomen and Pelvis With Contrast EXAM DATE/TIME: 04/03/19 (2:12am) CLINICAL HISTORY: 38 year old female with LUQ pain TECHNIQUE: Imaging protocol: Axial computed tomography images of the abdomen and pelvis with intravenous contrast. Coronal and sagittal reformatted images were created and reviewed. Radiation optimization: All CT scans at this facility use at least one of these dose optimization techniques: automated exposure control; mA and/or kV adjustment per patient size (includes targeted exams where dose is matched to clinical indication); or iterative reconstruction. Contrast material: Isovue 370 Contrast volume: 100 ml Contrast route: IV COMPARISON: CT ABDOMEN PELVIS of 08/24/17 FINDINGS: ABDOMEN: Liver: Normal. No solid mass. Gallbladder and bile ducts: Previous cholecystectomy. No ductal dilatation. Pancreas: Normal. No ductal dilatation. Spleen: Normal. No splenomegaly. Adrenals: Normal. No mass. Kidneys and ureters: Normal. No hydronephrosis. Stomach and bowel: Previous stomach surgery (near the E-G junction area). No bowel obstruction. No mucosal thickening. Appendix: No evidence of appendicitis. PELVIS: Bladder: Unremarkable as visualized. Reproductive: Unremarkable as visualized. ABDOMEN and PELVIS: Intraperitoneal space: Normal. No free air. No significant fluid collection. Bones/joints: No acute fracture nor dislocation. Soft tissues: Unremarkable. Vasculature: Normal. No abdominal aortic aneurysm. Lymph nodes: Normal. No enlarged lymph nodes. IMPRESSION: No acute findings. Previous cholecystectomy and previous stomach-related to surgery. Electronically signed by: Clarita Scott On 04/03/2019 04:23:19 AM
[2019-04-03] MEDS ORDERED: ZOFR4TAB16 PO (04:33)
[2019-04-03 04:52] VITALS: BP 102/55
--- NOTE | 2019-04-04 08:23 | ECGEPIP ---
[facility] - ED Test Date: 2019-04-02 Pat Name: IESHA MONSALVE Department: Room: - Gender: Female Director Specialty: : 1980 Requested By: REY Wakefield Order Number: [id number] Reading MD: Rey Troncoso Measurements Intervals [place] Rate: 78 P: 53 WI: 156 QRS: 21 QRSD: 90 T: 29 QT: 350 QTc: 400 Interpretive Statements SINUS RHYTHM WITH SINUS ARRHYTHMIA Comparison tracing not on file Electronically Signed on 04-04-2019 8:22:54 EDT by Rey Troncoso
== END 2019-04-03 04:53 | disposition home or self-care (01) ==
LOC: M ED 20:49
DX: R10.9 Unspecified abdominal pain (principal); I10 Essential (primary) hypertension; K57.32 Diverticulitis of large intestine without perforation or abscess without bleeding; G43.909 Migraine, unspecified, not intractable, without status migrainosus; J45.909 Unspecified asthma, uncomplicated; K21.9 Gastro-esophageal reflux disease without esophagitis; M54.9 Dorsalgia, unspecified; F41.9 Anxiety disorder, unspecified; Z98.84 Bariatric surgery status; Z79.899 Other long term (current) drug therapy; Z88.6 Allergy status to analgesic agent; Z88.8 Allergy status to other drugs, medicaments and biological substances; Z91.89 Other specified personal risk factors, not elsewhere classified
CPT/HCPCS: 74177; 80053; 81001; 82550; 82553; 84702; 84703; 85025; 93005; 96361; 96374; 96375; 96376; 99284; C9113; J2405; Q9963; Q9967

== ENCOUNTER 2019-07-08 21:32 | Emergency (ER) | payer OTHER ==
[~2019-07-08] VITALS: Ht 167.6 cm; Wt 75.0 kg
[2019-07-08 21:32] VITALS: BP 111/61
[~2019-07-08 21:32] MED LIST changes: +CLIN300C5; +CYAN100049 PO; +CYAN500T8 PO; -FENO145T13 PO; +FENO145T7 PO; -VITA10002 PO; -VITA500T3 PO; +ZOFR4TAB16 PO; +ZYRTTAB8 PO
== END 2019-07-08 23:56 | disposition left against medical advice (07) ==
LOC: M ED 21:32
DX: Z53.29 Procedure and treatment not carried out because of patient's decision for other reasons (principal)

== ENCOUNTER 2019-09-11 20:19 | Emergency (ER) | payer OTHER ==
[~2019-09-11] VITALS: Ht 167.6 cm; Wt 77.3 kg
[~2019-09-11 20:19] MED LIST changes: +FENO145T13 PO; -FENO145T7 PO
[2019-09-11] MEDS ORDERED: COLA100C5 PO (20:43)
[2019-09-11] MEDS ORDERED: ULTR5TAB PO (20:43)
[2019-09-11] MEDS ORDERED: VITA500045 PO (20:43)
[2019-09-11] MEDS ORDERED: CALC250T PO (20:43)
[2019-09-11] MEDS ORDERED: GI COCKTAIL 50ML BTL(HYOSCYAMINE/MAALOX/LIDOCAINE VISCOUS)(1:3:1) PO ONE (20:45)
[2019-09-11 21:00] LABS: BASO % 0.4 % (0.0-1.0); EOS % 0.3 % (0.0-3.0); HEMATOCRIT 41.9 % (36.0-47.0); HEMOGLOBIN 13.9 g/dl (12.0-15.5); LYMPH # 2.3 10^3/uL (1.5-5.0); LYMPH % 32.3 % (24.0-44.0); MEAN CORPUSCULAR HEMOGLOBIN 30.4 pg (27.0-33.0); MEAN CORPUSCULAR HGB CONC 33.2 g/dl (32.0-36.5); MEAN CORPUSCULAR VOLUME 91.7 fl (80.0-96.0); MONO # 0.4 10^3/uL (0.0-0.8); MONO % 5.3 % (0.0-5.0); NEUTROPHILS # 4.3 10^3/uL (1.5-8.5); NEUTROPHILS % 61.3 % (36.0-66.0); PLATELET COUNT, AUTOMATED 162 10^3/uL (150-450); RED BLOOD COUNT 4.57 10^6/uL (4.00-5.40)
[2019-09-11 21:33] LABS: ALBUMIN 4.2 GM/DL (3.2-5.2); ALT/SGPT 40 U/L (12-78); BILIRUBIN,DIRECT 0.1 MG/DL (0.0-0.2); BILIRUBIN,TOTAL 0.8 MG/DL (0.2-1.0); BLOOD UREA NITROGEN 7 MG/DL (7-18); CALCIUM LEVEL 9.3 MG/DL (8.5-10.1); CARBON DIOXIDE LEVEL 30 MEQ/L (21-32); CHLORIDE LEVEL 105 MEQ/L (98-107); CK-MB VALUE MASS 2.6 NG/ML (<3.6); CPK CREATINE PHOSPHOKINASE 192 U/L (26-192); GLOMERULAR FILTRATION RATE > 60.0 (>58); GLUCOSE, FASTING 83 MG/DL (70-100); LIPASE 98 U/L (73-393); MB/CK RELATIVE INDEX 1.35 (< OR =4); POTASSIUM SERUM 3.7 MEQ/L (3.5-5.1); SODIUM LEVEL 140 MEQ/L (136-145); TOTAL PROTEIN 7.3 GM/DL (6.4-8.2); TROPONIN I < 0.02 NG/ML (< 0.10)
[2019-09-11] MEDS ORDERED: ISOVUE-370 76% 100ML VIAL (Q9967) As Ordered ONE (22:15)
--- NOTE | 2019-09-12 00:02 | REPVR ---
PROCEDURE INFORMATION: Exam: CT Angiography Chest With Contrast Exam date and time: 09/11/2019 11:09 PM Clinical history: 39 years old, female; Chest pain; Additional info: Epigastric/chest pain; R/O perforation/aaa/taa TECHNIQUE: Imaging protocol: Computed tomographic angiography of the chest with intravenous contrast. 3D rendering: MIP and 3D reconstructed images were created and reviewed. Radiation optimization: All CT scans at this facility use at least one of these dose optimization techniques: automated exposure control; mA and/or kV adjustment per patient size (includes targeted exams where dose is matched to clinical indication); or iterative reconstruction. Contrast material: ISOVUE 370; Contrast volume: 100 ml; Contrast route: IV; COMPARISON: CT ANGIO CHEST 11/02/2013 11:58 AM FINDINGS: Pulmonary arteries: There are no pulmonary emboli. Aorta: There is no aortic dissection or aneurysm. Lungs: 4 mm noncalcified subpleural nodule right lower lobe likely postinflammatory. No followup necessary. Remaining lungs are clear. Pleural space: Unremarkable. No pneumothorax. No pleural effusion. Heart: Unremarkable. No cardiomegaly. No pericardial effusion. Lymph nodes: Bilateral hilar lymphadenopathy, left greater than right. Confluent mediastinal lymphadenopathy. Bones/joints: Unremarkable. No acute fracture. Soft tissues: Unremarkable. IMPRESSION: 1. There is no aortic dissection or aneurysm. 2. Bilateral hilar lymphadenopathy, left greater than right. 3. There are no pulmonary emboli. 4. Confluent mediastinal lymphadenopathy. Electronically signed by: Remy Kang On 09/12/2019 00:02:19 AM
--- NOTE | 2019-09-12 00:05 | REPVR ---
PROCEDURE INFORMATION: Exam: CT Angiography Abdomen and Pelvis With Contrast Exam date and time: 09/11/2019 11:09 PM Clinical history: 39 years old, female; Abdominal pain; Epigastric; Additional info: Epigastric/chest pain; R/O perforation/aaa/taa TECHNIQUE: Imaging protocol: Computed tomographic angiography of the abdomen and pelvis with intravenous contrast material. 3D rendering: MIP and 3D reconstructed images were created and reviewed. Radiation optimization: All CT scans at this facility use at least one of these dose optimization techniques: automated exposure control; mA and/or kV adjustment per patient size (includes targeted exams where dose is matched to clinical indication); or iterative reconstruction. Contrast material: ISOVUE 370; Contrast volume: 100 ml; Contrast route: IV; COMPARISON: CT ABD/PEL W/IV ORAL CONTRAS 04/03/2019 2:09 AM FINDINGS: VASCULATURE: Aorta: No aortic aneurysm. No aortic dissection. Celiac trunk and mesenteric arteries: No occlusion or significant stenosis. Renal arteries: No occlusion or significant stenosis. Right iliac arteries: Minimal atherosclerotic changes. No occlusion or significant stenosis. Left iliac arteries: Minimal atherosclerotic changes. No occlusion or significant stenosis. ABDOMEN and PELVIS: Liver: No mass. Gallbladder and bile ducts: There has been a cholecystectomy. Pancreas: Unremarkable. No mass. No ductal dilation. Spleen: Unremarkable. No splenomegaly. Adrenals: Unremarkable. No mass. Kidneys and ureters: Unremarkable. No solid mass. No hydronephrosis. Stomach and bowel: This patient is status post gastric bypass surgery. Appendix: No evidence of appendicitis. Intraperitoneal space: Unremarkable. No free air. No significant fluid collection. Lymph nodes: Unremarkable. No enlarged lymph nodes. Bladder: Unremarkable. No mass. Reproductive: There has been a hysterectomy. Bones/joints: Bilateral L5 spondylolysis without significant spondylolisthesis. Soft tissues: Unremarkable. IMPRESSION: 1. There has been a cholecystectomy. 2. This patient is status post gastric bypass surgery. 3. There has been a hysterectomy. 4. Unremarkable evaluation of the aorta and branch arteries. Electronically signed by: Remy Kang On 09/12/2019 00:05:19 AM
[2019-09-12] MEDS ORDERED: SUCR1SS PO (00:07)
[2019-09-12] MEDS ORDERED: PANT40TA3 PO (00:07)
[2019-09-12 00:12] VITALS: BP 107/59
[2019-09-12] MEDS ORDERED: SUCRALFATE 1 GM TAB PO ONE (00:15)
--- NOTE | 2019-09-12 08:27 | REP ---
Portable chest x-ray: Single view. History: Chest pain. Comparison chest x-ray November 02, 2013. September 01, 2012 radiograph is also reviewed. Findings: The lungs are well inflated and clear. The pleural angles are sharp. Cardiomediastinal silhouette is unremarkable. No bony abnormalities seen. Impression: No active disease. Electronically Signed by Andre Velasco MD 09/12/2019 08:19 A
--- NOTE | 2019-09-13 11:58 | ECGEPIP ---
[facility] - ED Test Date: 2019-09-11 Pat Name: IESHA MONSALVE Department: Room: - Gender: Female Beam Warper: ct : 1980 Requested By: JUANITA Arroyo Order Number: [id number] Reading MD: Radha Whittington Measurements Intervals [place] Rate: 68 P: 62 NC: 162 QRS: 21 QRSD: 94 T: 19 QT: 401 QTc: 427 Interpretive Statements SINUS RHYTHM DECREASED RATE 04/02/19 Electronically Signed on 09-13-2019 11:58:13 EST by Radha Whittington
--- NOTE | 2019-09-14 16:23 | ED PDOC ---
Post-Departure Follow-Up certified letter sent to pt re formal read of cta chest. see report needs fu Terry Richardson MD Sep 14, 2019 16:23
== END 2019-09-12 00:20 | disposition home or self-care (01) ==
LOC: M ED 20:19
DX: K27.9 Peptic ulcer, site unspecified, unspecified as acute or chronic, without hemorrhage or perforation (principal); R59.0 Localized enlarged lymph nodes; Z90.49 Acquired absence of other specified parts of digestive tract; Z90.710 Acquired absence of both cervix and uterus; Z98.84 Bariatric surgery status; K21.0 Gastro-esophageal reflux disease with esophagitis; Z88.6 Allergy status to analgesic agent; Z91.048 Other nonmedicinal substance allergy status; Z79.899 Other long term (current) drug therapy
CPT/HCPCS: 36415; 71045; 71275; 74174; 80048; 80076; 82550; 82553; 83690; 84443; 85025; 93005; 93041; 94760; 99285; Q9967

== ENCOUNTER → 2020-01-12 | Outpatient (REF) | payer OTHER ==
[~2020-01-12] MED LIST changes: +CALC250T PO; +COLA100C5 PO; -FENO145T13 PO; +FENO145T7 PO; +SUCR1SS PO; +ULTR5TAB PO; +VITA500045 PO
== END ==
LOC: M SFHCPLAZ 10:13
PROVIDERS: ATTEND Physician Assistant
DX: Z00.00 Encounter for general adult medical examination without abnormal findings (principal); Z13.29 Encounter for screening for other suspected endocrine disorder; Z13.220 Encounter for screening for lipoid disorders; Z13.1 Encounter for screening for diabetes mellitus; E55.9 Vitamin D deficiency, unspecified; Z98.84 Bariatric surgery status; M13.0 Polyarthritis, unspecified

== ENCOUNTER → 2020-01-13 | Outpatient (REF) | payer OTHER ==
[2020-01-13 12:23] LABS: BASO % 0.6 % (0.0-1.0); EOS # 0.1 10^3/uL (0.0-0.5); EOS % 1.8 % (0.0-3.0); HEMATOCRIT 42.4 % (36.0-47.0); HEMOGLOBIN 14.1 g/dl (12.0-15.5); LYMPH # 1.3 10^3/uL (1.5-5.0); LYMPH % 24.9 % (24.0-44.0); MEAN CORPUSCULAR HEMOGLOBIN 30.7 pg (27.0-33.0); MEAN CORPUSCULAR HGB CONC 33.3 g/dl (32.0-36.5); MEAN CORPUSCULAR VOLUME 92.2 fl (80.0-96.0); MONO # 0.3 10^3/uL (0.0-0.8); MONO % 6.3 % (0.0-5.0); NEUTROPHILS # 3.4 10^3/uL (1.5-8.5); PLATELET COUNT, AUTOMATED 146 10^3/uL (150-450); WHITE BLOOD COUNT 5.1 10^3/uL (4.0-10.0)
[2020-01-13 12:40] LABS: ALT/SGPT 37 U/L (12-78); BILIRUBIN,TOTAL 0.8 MG/DL (0.2-1.0); BLOOD UREA NITROGEN 5 MG/DL (7-18); C REACTIVE PROTEIN QUANTITATIV < 0.30 MG/DL (0.00-0.30); CALCIUM LEVEL 9.4 MG/DL (8.5-10.1); CARBON DIOXIDE LEVEL 31 MEQ/L (21-32); CHLORIDE LEVEL 106 MEQ/L (98-107); CHOLESTEROL LEVEL 150 MG/DL (<200); CREATININE FOR GFR 0.64 MG/DL (0.55-1.30); FREE T4 0.93 NG/DL (0.76-1.46); GLOMERULAR FILTRATION RATE > 60.0 (>58); GLUCOSE, FASTING 65 MG/DL (70-100); HDL CHOLESTEROL 53 MG/DL (>40); IRON (FE) 68 UG/DL (50-170); LDL CHOLESTEROL 66 MG/DL (<100); NON-HDL-C 97 MG/DL; POTASSIUM SERUM 3.9 MEQ/L (3.5-5.1); RHEUMATOID FACTOR QUANT < 10.0 IU/ML (<15.0); SODIUM LEVEL 140 MEQ/L (136-145); TOTAL PROTEIN 6.9 GM/DL (6.4-8.2); TRIGLYCERIDES LEVEL 153 MG/DL (<150)
[2020-01-13 12:45] LABS: ERYTHROCYTE SEDIMENTATION RATE 5 mm/hr (0-20)
[2020-01-13 12:51] LABS: HEMOGLOBIN A1c 4.7 %; TOTAL 25(OH) VITAMIN D 87.6 NG/ML (30.0-100.0); VITAMIN B12 LEVEL 905 PG/ML
[2020-01-13 12:52] LABS: FOLATE > 24.0 NG/ML
[2020-01-21 14:06] LABS: ANA (HEP2) Positive (.); VITAMIN A, RETINOL LEVEL 32.8 ug/dL (20.1-62.0); VITAMIN E(ALPHA TOCOPHEROL) 9.1 mg/L (7.0-25.1); VITAMIN E(GAMMA TOCOPHEROL) 0.4 mg/L (0.5-5.5); VITAMIN K1 0.61 ng/mL (0.13-1.88)
== END ==
LOC: M SFHCPLAZ 07:55
PROVIDERS: ATTEND Physician Assistant
DX: Z00.00 Encounter for general adult medical examination without abnormal findings (principal); Z13.220 Encounter for screening for lipoid disorders; Z13.1 Encounter for screening for diabetes mellitus; E55.9 Vitamin D deficiency, unspecified; Z98.84 Bariatric surgery status; M13.0 Polyarthritis, unspecified

== ENCOUNTER → 2020-04-22 | Outpatient (CLI) | payer OTHER ==
--- NOTE | 2020-04-22 17:36 | REPPI ---
FOOT: REASON: Atraumatic pain. FINDINGS: The joint spaces are symmetric and relatively well maintained. There is no evidence of acute fracture or destructive osseous lesion. IMPRESSION: Negative. Electronically Signed by Lennox Black DO 05/02/2020 07:43 A
== END ==
LOC: M PLAIMG 13:50
PROVIDERS: ATTEND Internal Medicine Rheumatology
DX: M79.671 Pain in right foot (principal)

== ENCOUNTER → 2020-12-10 | Outpatient (CLI) | payer OTHER ==
[~2020-12-10] MED LIST changes: -CLIN300C5; +CLIN300C6; +CYAN500T14 PO; -CYAN500T8 PO; +PANT40TA29 PO; -PANT40TA3 PO
[2020-12-10 09:32] LABS: BASO % 0.5 % (0.0-1.0); HEMATOCRIT 41.3 % (36.0-47.0); HEMOGLOBIN 13.9 g/dl (12.0-15.5); LYMPH # 1.3 10^3/uL (1.5-5.0); LYMPH % 22.6 % (24.0-44.0); MEAN CORPUSCULAR HEMOGLOBIN 31.1 pg (27.0-33.0); MEAN CORPUSCULAR HGB CONC 33.7 g/dl (32.0-36.5); MEAN CORPUSCULAR VOLUME 92.4 fl (80.0-96.0); MONO # 0.3 10^3/uL (0.0-0.8); MONO % 5.2 % (2.0-8.0); NEUTROPHILS % 71.3 % (36.0-66.0); PLATELET COUNT, AUTOMATED 148 10^3/uL (150-450); RED BLOOD COUNT 4.47 10^6/uL (4.00-5.40); WHITE BLOOD COUNT 5.5 10^3/uL (4.0-10.0)
[2020-12-10 10:08] LABS: ALBUMIN 4.1 GM/DL (3.2-5.2); ALT/SGPT 31 U/L (12-78); BILIRUBIN,TOTAL 0.8 MG/DL (0.2-1.0); BLOOD UREA NITROGEN 11 MG/DL (7-18); CALCIUM LEVEL 9.1 MG/DL (8.5-10.1); CARBON DIOXIDE LEVEL 30 MEQ/L (21-32); CHLORIDE LEVEL 109 MEQ/L (98-107); CHOLESTEROL LEVEL 164 MG/DL (<200); CREATININE FOR GFR 0.61 MG/DL (0.55-1.30); FERRITIN 188 NG/ML (8-252); GLOMERULAR FILTRATION RATE > 60.0 (>58); GLUCOSE, FASTING 81 MG/DL (70-100); HDL CHOLESTEROL 50 MG/DL (>40); IRON (FE) 80 UG/DL (50-170); LDL CHOLESTEROL 90 MG/DL (<100); NON-HDL-C 114 MG/DL; PERCENT SATURATION 26.6 % (13.2-45.0); POTASSIUM SERUM 4.3 MEQ/L (3.5-5.1); SODIUM LEVEL 145 MEQ/L (136-145); THYROID STIMULATING HORMONE 0.773 uIU/ML (0.358-3.740); TOTAL IRON BINDING CAPACITY 301 UG/DL (250-450); TOTAL PROTEIN 7.2 GM/DL (6.4-8.2); TRIGLYCERIDES LEVEL 118 MG/DL (<150)
[2020-12-12 10:26] LABS: TOTAL 25(OH) VITAMIN D 73.5 NG/ML (30.0-100.0)
[2020-12-12 10:27] LABS: VITAMIN B12 LEVEL 1026 PG/ML (247-911)
== END ==
LOC: M LAB 08:38
PROVIDERS: ATTEND Family Medicine
DX: R11.0 Nausea (principal)

== ENCOUNTER → 2020-12-21 | Outpatient (CLI) | payer OTHER ==
--- NOTE | 2020-12-21 10:42 | REP ---
INDICATION: PAIN RT SHOULDER. Patient reports right shoulder pain radiating to the neck and shoulder blade for the past few months. Limited range of motion. COMPARISON: No comparison imaging.. TECHNIQUE: Axial, oblique coronal, and oblique sagittal imaging planes utilized. T1 and T2 weighted scans are included with without fat saturation in the usual fashion. FINDINGS: Cortical and medullary bone signal intensity are normal. There is mild subcortical cyst formation in the posterolateral humeral head. Minimal AC joint hypertrophy is seen consistent with early osteoarthritis. There is a large low T1 low T2 signal intensity plaque-like lesion along the distal subscapularis tendon consistent with periarticular soft tissue calcification indicating chronic tendonitis. This is 15 mm in greatest diameter by 3 mm in thickness. The biceps and infraspinatus tendons are intact. There is some thickening and tendinosis change in the subscapularis tendon. The supraspinatus tendon also shows thickening and increased signal intensity on oblique coronal T1 weighted scans consistent with tendinitis tendinosis change. No focal or full-thickness cuff tear is seen on oblique coronal T2 weighted scans. There is no evidence of superior or posterior labral tear. There is no evidence of anterior labral tear. No articular cartilage lesion is seen. No significant joint effusion is noted. Juxta-articular soft tissues are unremarkable. IMPRESSION: Tendinitis tendinosis changes are seen in the supraspinatus and subscapularis tendons. There is a large calcific deposit apparent in the subscapularis tendon. Early AC joint osteoarthritis. No full-thickness cuff tear seen. <Electronically signed by Mariano Velasco > 12/21/20 [id number]
== END ==
LOC: M RAD 07:35
PROVIDERS: ATTEND Family Medicine
DX: M75.31 Calcific tendinitis of right shoulder (principal)

== ENCOUNTER → 2021-04-12 | Outpatient (REF) | payer OTHER | LOC: M SFHCLERA 11:19 | PROVIDERS: ATTEND Nurse Practitioner Family | DX: R30.0 Dysuria (principal) ==

== ENCOUNTER → 2021-04-19 | Outpatient (CLI) | payer OTHER ==
--- NOTE | 2021-04-19 13:32 | REP ---
INDICATION: URINARY URGENCY. COMPARISON: Multiple latest 09/11/2019 a contrast-enhanced examination TECHNIQUE: Noncontrast enhanced stone protocol due to urinary urgency FINDINGS: Lung bases are clear. Limited evaluation of the solid intra-abdominal organs show no gross abnormalities. Limited evaluation of the pancreas, adrenal glands, and kidneys show no gross abnormalities. There is no nephroureterolithiasis. There is an extrarenal pelvis bilateral status quo. Very mild right-sided hydronephrosis cannot be ruled out. There are no urinary bladder calcifications. There are bilateral pelvic phleboliths status quo. Limited evaluation of the bowel loops and the mesenteries show no gross abnormalities. There is no free fluid or free air. Limited evaluation of the abdominal aorta and para-aortic regions show no gross abnormalities or significant changes from the prior exam. There is no evidence of a mass or adenopathy. The osseous structures are stable and intact. IMPRESSION: Possible very mild right-sided hydronephrosis, however, there is urinary bladder distension. There are no definite nephroliths are ureteroliths. Follow-up is suggested. Other findings as described above. <Electronically signed by Lennox Black > 04/19/21 [id number]
== END ==
LOC: M RAD 12:55
PROVIDERS: ATTEND Nurse Practitioner Family
DX: R39.15 Urgency of urination (principal)

== ENCOUNTER 2021-04-20 18:01 | Emergency (ER) | payer OTHER ==
[~2021-04-20] VITALS: Ht 168.9 cm; Wt 77.3 kg
--- NOTE | 2021-04-20 22:10 | REPVR ---
PROCEDURE INFORMATION: Exam: US Retroperitoneal Limited, Kidneys Exam date and time: 04/20/2021 9:23 PM Age: 40 years old Clinical indication: Abnormal findings; Abnormal radiologic finding of the abdomen; Radiologic exam and body structure: CT abd/pelvis on 04/19; Additional info: Flank pain/bladder distension TECHNIQUE: Imaging protocol: Real-time ultrasound of the retroperitoneum with image documentation. Examination was focused on the kidneys. COMPARISON: ABD COMPLETE US 10/30/2017 9:57 AM FINDINGS: Right kidney: The right kidney measures 12.2 cm in its cephalocaudad dimension and 4.3 x 5.5 cm in diameter. No mass, cyst or hydronephrosis. Left kidney: The left kidney measures 12.7 cm in its cephalocaudad dimension and 4.7 x 5.2 cm in diameter. No mass, cyst or hydronephrosis. Bladder: The bladder is decompressed and not seen. IMPRESSION: Negative renal sonogram. Electronically signed by: Fili Bonilla On 04/20/2021 22:09:26 PM
[2021-04-20] MEDS ORDERED: ONDANSETRON 4MG/2ML VIAL IV ONE (22:45)
[2021-04-20 22:56] LABS: BASO % 0.6 % (0.0-1.0); EOS # 0.2 10^3/uL (0.0-0.5); EOS % 2.6 % (0.0-3.0); HEMATOCRIT 39.5 % (36.0-47.0); HEMOGLOBIN 13.5 g/dl (12.0-15.5); LYMPH # 2.6 10^3/uL (1.5-5.0); LYMPH % 41.7 % (24.0-44.0); MEAN CORPUSCULAR HEMOGLOBIN 30.5 pg (27.0-33.0); MEAN CORPUSCULAR HGB CONC 34.2 g/dl (32.0-36.5); MEAN CORPUSCULAR VOLUME 89.4 fl (80.0-96.0); MONO # 0.4 10^3/uL (0.0-0.8); MONO % 5.8 % (2.0-8.0); NEUTROPHILS # 3.1 10^3/uL (1.5-8.5); NEUTROPHILS % 48.7 % (36.0-66.0); PLATELET COUNT, AUTOMATED 159 10^3/uL (150-450); RED BLOOD COUNT 4.42 10^6/uL (4.00-5.40); WHITE BLOOD COUNT 6.3 10^3/uL (4.0-10.0)
[2021-04-20] MEDS ORDERED: MORPHINE 4 MG/ML 1ML VIAL/SYRINGE (J2270) As Ordered ONE (23:00)
[2021-04-20] MEDS ORDERED: MORPHINE 4 MG/ML 1ML VIAL/SYRINGE (J2270) IV ONE (23:00)
[2021-04-20 23:52] VITALS: BP 148/78
== END 2021-04-21 00:01 | disposition home or self-care (01) ==
LOC: M ED 18:01
DX: R35.0 Frequency of micturition (principal); R10.30 Lower abdominal pain, unspecified; E78.5 Hyperlipidemia, unspecified; I10 Essential (primary) hypertension; Z88.6 Allergy status to analgesic agent; Z88.8 Allergy status to other drugs, medicaments and biological substances; Z98.84 Bariatric surgery status
CPT/HCPCS: 76775; 80047; 81001; 85025; 96374; 99284; J2270; J2405

== ENCOUNTER → 2021-08-18 | Outpatient (CLI) | payer OTHER ==
[~2021-08-18] MED LIST changes: +CLIN-250; -CLIN300C6
[2021-08-18 17:15] LABS: BASO # 0.1 10^3/uL (0.0-0.2); BASO % 0.6 % (0.0-1.0); EOS # 0.2 10^3/uL (0.0-0.5); LYMPH # 2.3 10^3/uL (1.5-5.0); LYMPH % 30.2 % (24.0-44.0); MONO # 0.5 10^3/uL (0.0-0.8); MONO % 5.9 % (2.0-8.0); NEUTROPHILS # 4.6 10^3/uL (1.5-8.5); NEUTROPHILS % 59.7 % (36.0-66.0); WHITE BLOOD COUNT 7.8 10^3/uL (4.0-10.0)
[2021-08-18 17:37] LABS: ERYTHROCYTE SEDIMENTATION RATE 3 mm/hr (0-20)
== END ==
LOC: M LAB 15:51
PROVIDERS: ATTEND Orthopaedic Surgery Sports Medicine
DX: M75.41 Impingement syndrome of right shoulder (principal)

== ENCOUNTER → 2021-10-13 | Outpatient (CLI) | payer OTHER ==
[~2021-10-13] MED LIST changes: +ERGO500029 PO; +FAMO10TA50 PO; -LINZ145C; +LINZ145C PO; +TIZA2CAP PO; +VITMTA PO
== END ==
LOC: M LABSMTC 09:16
PROVIDERS: ATTEND Anesthesiology
DX: Z01.818 Encounter for other preprocedural examination (principal); Z11.52 Encounter for screening for COVID-19

== ENCOUNTER 2021-10-18 07:45 | Day surgery (SDC) | payer OTHER ==
[~2021-10-18] VITALS: Ht 167.6 cm; Wt 82.6 kg
[~2021-10-18 07:45] MED LIST changes: +LR 1,000 ML IV ONE; +ceFAZolin SOD 2 GM in IV 1 EA IV ONE
[2021-10-18] MEDS ORDERED: KETOROLAC 60MG 2ML VIAL As Ordered ONE (07:51)
[2021-10-18] MEDS ORDERED: propofoL 200 MG/20 ML VIAL As Ordered ONE (07:51)
[2021-10-18] MEDS ORDERED: ONDANSETRON 4MG/2ML VIAL As Ordered ONE (07:51)
[2021-10-18] MEDS ORDERED: dexameTHASONE 4 MG/ML 1ML VIAL (J1100 PER 1MG) As Ordered ONE (07:51)
[2021-10-18] MEDS ORDERED: LIDOCAINE 2% 100MG/5ML SDV (FOR ANES.) As Ordered ONE ×2 (07:51→09:08)
[2021-10-18] MEDS ORDERED: MIDAZOLAM INJ 2MG/2ML VIAL (J2250 PER 1MG) As Ordered ONE (07:54)
[2021-10-18] MEDS ORDERED: fentaNYL 100 MCG/2 ML INJECTION (J3010) As Ordered ONE ×2 (07:55→10:40)
[2021-10-18] MEDS ORDERED: dexameTHASONE 10MG/1ML VIAL PRES.FREE (J1100 PER 1MG) XX ONE (08:50)
[2021-10-18] MEDS ORDERED: ROPIvacaine 0.5% 30ML INJECTION (J2795 PER 1MG) XX ONE (08:50)
[2021-10-18] MEDS ORDERED: EPINEPHrine INJ 1 MG/ML 1ML AMP XX ONE (08:50)
[2021-10-18] MEDS ORDERED: LIDOCAINE 1% MDV 20ML VIAL XX ONE (08:50)
[2021-10-18] MEDS ORDERED: SCOPOLAMINE 1MG TRANSDERMAL PATCH TOP ONE (08:55)
[2021-10-18] MEDS ORDERED: ROCURONIUM BROMIDE 50 MG/5 ML VIAL As Ordered ONE ×3 (09:06→10:51)
[2021-10-18] MEDS ORDERED: SUGAMMADEX SODIUM 500 MG/5 ML VIAL (BRIDION) As Ordered ONE ×2 (09:08→11:02)
[2021-10-18] MEDS ORDERED: EPINEPHrine INJ 1 MG/ML 1ML AMP As Ordered ONE ×2 (09:22→10:28)
[2021-10-18] MEDS ORDERED: LIDOCAINE 1% MDV 20ML VIAL As Ordered ONE (09:22)
[2021-10-18] MEDS: MIDAZOLAM INJ 2MG/2ML VIAL (J2250 PER 1MG) IV PRN ×2 (09:30→09:32)
[2021-10-18] MEDS: fentaNYL 100 MCG/2 ML INJECTION (J3010) IV PRN ×2 (09:30→09:32)
[2021-10-18] MEDS ORDERED: ACETAMINOPHEN 1000MG 100ML IV BTL (OFIRMEV) (J0131 PER 10MG) As Ordered ONE (10:26)
[2021-10-18] MEDS ORDERED: ePHEDrine SULFATE 25 MG/5 ML(5MG/ML) SYRINGE As Ordered ONE (11:00)
--- NOTE | 2021-10-18 11:45 | ROOPDOC ---
[facility] Report Of Operation Report of Operation DATE OF PROCEDURE: 10/18/21 PREPROCEDURE DIAGNOSES: Right shoulder calcific tendinitis and impingement. POSTPROCEDURE DIAGNOSES: Same. PROCEDURE PERFORMED: Right shoulder arthroscopy, subacromial decompression, debridement calcific deposit and rotator cuff repair [subscapularis repair]. SURGEON: Dr. Keshav Trejo MD LOCKSMITH: None ANESTHESIA: General anesthesia and preoperative block Dr SINGER. ESTIMATED BLOOD LOSS: Approximately 100 mL. COMPLICATIONS: None. REMARKS: None. FINDINGS: Calcific deposit superior border subscapularis SPECIMENS REMOVED: None PROCEDURE NOTE: 41-year-old female with continued shoulder pain who failed nonsurgical management. We discussed the pros and cons risks and benefits of go ahead with shoulder arthroscopy subacromial decompression debridement calcific deposit upper border subscapularis as well as possible rotator cuff repair. The patient wished to go ahead and marked right upper extremity they understood had no further questions. DESCRIPTION OF PROCEDURE: Patient was brought to the operating room theater. They are placed supine on the operating room table. General anesthesia was induced. 2 g IV Ancef administered prior to incision and case. The patient was positioned right lateral decubitus with the aid of the beanbag positioner. Axillary roll was used. SCDs on legs. All bony prominences appropriately padded. Right upper extremity prepped and draped in the usual sterile fashion chlorhexidine-based prep solution allowing over 3 minutes drying time prior to draping. Arm ibanez was used with the arm in 45 degrees of abduction with 10 pounds of traction throughout the case. Preoperative timeout performed to confirm the site patient and surgery. Began by making a standard arthroscopy portal. I inserted the arthroscope into the intra-articular portion of the shoulder. I performed a thorough diagnostic arthroscopy. Supraspinatus as well as the rest the rotator cuff tendons appeared intact. Biceps tendon was normal. There was some mild synovitis. Biceps groove is normal. Cartilage on the humeral head as well as the glenoid appeared normal. There is some mild to moderate fraying the anterior glenoid. I performed an inside-out spinal needle localization through the anterior rotator rotator interval placed a cannula there. I gently debrided the fraying of the anterior labrum. No obvious other abnormalities. Axillary pouch was normal no loose bodies. Biceps root was stable and solid to probing. There is some minor fraying there gently debrided. I then debrided the anterior and just posterior to the subscapularis insertion to delineate the tendon the tendon appeared intact. I used a 70 degree arthroscope to visualize the anterior aspect of the subscapularis insertion. I made an accessory anterolateral portal as well. I slightly elevated the upper border of the subscapularis and it was there that there was a calcific deposit. I used shaving instruments as well as a bur to remove this. As such there is a small upper border 10% fraying detachment therefore I elected to perform a repair there. I used the bone punch down to the second line. I used a Arthrex 25 degree curve instrument to pass nitinol wire followed by fiber tape suture into the upper border of the subscapularis to plan for repair. I used a simple stitch of the upper border subscapularis and then passed this into an anchor secured the anchor into bone using a 4.75 mm Arthrex bio composite swivel lock anchor achieving a knotless repair. This achieved solid repair. Sutures were cut short and stay suture removed. Repair was stable. I then placed the arthroscope into the subacromial space. I performed a thorough bursectomy. I performed a subacromial decompression for approximately 4 to 5 mm. I thoroughly irrigated and removed any remaining bone dust. I probed the superior aspect of the rotator cuff there is no obvious tears. Case terminated arthroscope withdrawn. I took arthroscopy pictures throughout and saved them onto the system. Cannula removed. Shoulder was cleaned with wet dry dressing followed by closure of the portals with 3-0 Monocryl suture. Adaptic 4 x 8 gauze abdominal pad dressings and cloth tape was then placed followed by a sling to the upper extremity. Patient removed out of the traction set up transferred off the operating room table and taken to postanesthetic care unit in stable condition. All sponge needle instrument counts were correct no complications. Estimated blood loss 100 cc. Plan for the patient medial pendulum exercises hand wrist and elbow exercises no lifting of the upper extremity follow-up in clinic in 2 weeks time discharge home according to day surgery criteria when they are comfortable. Prescription to be sent into the pharmacy of choice electronically. Risk factors for harms from taking opioid medications discussed and assessed including but not limited to personal or family history of substance use disorder, anxiety or depression, , age 65 or older, COPD or other underlying respiratory conditions, and renal or hepatic insufficiency. Discussed with patient concerns and determined any harms they may experience or be currently experiencing such as nausea or constipation, feeling sedated or confused, breathing interruptions during sleep, or taking or craving more opioids than prescribed or difficulty controlling use (addiction). Discussed early warning signs of overdose including confusion, sedation, slurred speech, abnormal gait. Postoperative wound instructions were given. It was recommended to keep the wound clean and dry. Dressing changes as needed. It was reinforced with the patient that they should call us or be seen immediately for redness, drainage, or fever. KESHAV TREJO MD Oct 18, 2021 11:45
[2021-10-18] MEDS ORDERED: PERCOCET 5MG/325MG TAB PO PRN (12:20)
[2021-10-18] MEDS ORDERED: LR 1,000 ML IV SCH ×2 (12:20)
[2021-10-18] MEDS ORDERED: ONDANSETRON 4MG/2ML VIAL IV PRN ×2 (12:20)
[2021-10-18] MEDS ORDERED: ACETAMINOPHEN TAB 650MG DOSE (2X325MG) PO PRN (12:20)
[2021-10-18] MEDS ORDERED: fentaNYL 100 MCG/2 ML INJECTION (J3010) IV PRN (12:20)
[2021-10-18] MEDS ORDERED: MORPHINE 2 MG/ML 1ML VIAL (J2270) IV PRN (12:20)
[2021-10-18] MEDS ORDERED: oxyCODONE 5MG TAB PO PRN (12:20)
[2021-10-18] MEDS ORDERED: METOCLOPRAMIDE INJ 10MG/2ML VIAL (J2765 PER 1) IV PRN (12:20)
[2021-10-18 13:30] VITALS: BP 129/66
== END 2021-10-18 13:56 | disposition home or self-care (01) ==
LOC: M SDC 07:45
PROVIDERS: ATTEND Orthopaedic Surgery Sports Medicine
DX: M75.41 Impingement syndrome of right shoulder (principal); M75.31 Calcific tendinitis of right shoulder; I10 Essential (primary) hypertension; G43.909 Migraine, unspecified, not intractable, without status migrainosus; J32.0 Chronic maxillary sinusitis; Z79.899 Other long term (current) drug therapy; Z98.84 Bariatric surgery status; Z88.8 Allergy status to other drugs, medicaments and biological substances; D64.9 Anemia, unspecified; K21.9 Gastro-esophageal reflux disease without esophagitis
CPT/HCPCS: 29823; 29826; 29827; 64415; C1713; J0171; J0690; J1100; J2250; J2405; J3010